=== PATIENT | male | born 1945 | race Caucasian/White ===

== ENCOUNTER 2018-07-11 15:03 | Inpatient (IN) | payer MEDICARE ==
[~2018-07-11] VITALS: Ht 170.2 cm; Wt 102.5 kg
[2018-07-11] MEDS ORDERED: ONDANSETRON PF 4 MG/2 ML VIAL. ONE (15:18)
[2018-07-11] MEDS ORDERED: IV NORMAL SALINE 1,000ML 1,000 ML IV ONE (15:30)
[2018-07-11] MEDS ORDERED: ONDANSETRON PF 4 MG/2 ML VIAL. IV ONE (15:30)
--- NOTE | 2018-07-11 15:41 | PHYS DOC ---
Adult General Chief Complaint Chief Complaint: FEVER HPI HPI 72-year-old male [facility] with [facility], cough, nausea , vomiting. Patient has had the symptoms for a couple of days. He had a fever of 102 today. They gave him Tylenol and this improved his fever. They're concerned the patient has a infection was in the ED. Patient tells me he is also had some chest pressure today and that was concerning to him. He does not report diaphoresis or shortness of breath, but the patient is on oxygen all the time. Review of Systems Review of Systems Constitutional: Fever[] Eyes: Denies change in visual acuity, redness, or eye pain [] HENT: nasal congestion with sore throat [] Respiratory: Cough without shortness of breath[] Cardiovascular: No additional information not addressed in HPI [] GI: Nausea, vomiting. Denies abdominal pain bloody stools or diarrhea [] : Denies dysuria or hematuria [] Musculoskeletal: Denies back pain or joint pain [] Integument: Denies rash or skin lesions [] Neurologic: Denies headache, focal weakness or sensory changes [] Endocrine: Denies polyuria or polydipsia [] All other systems were reviewed and found to be within normal limits, except as documented in this note. Current Medications Current Medications Current Medications Medications (Trade) Dose Ordered Sig/Akila Start Time Stop Time Status Last Admin Dose Admin Ondansetron HCl (Zofran) 4 mg STK-MED ONCE 07/11/18 15:18 07/11/18 15:19 DC Sodium Chloride 1,000 ml @ 1,000 mls/hr 1X ONCE 07/11/18 15:30 07/11/18 16:29 UNV Physical Exam Physical Exam Constitutional: Well developed, well nourished, no acute distress, non-toxic appearance. [] HENT: Normocephalic, atraumatic, bilateral external ears normal, oropharynx moist, no oral exudates, nose normal. [] Eyes: PERRLA, EOMI, conjunctiva normal, no discharge. [] Neck: Normal range of motion, no tenderness, supple, no stridor. [] Cardiovascular:Heart rate regular rhythm, no murmur [] Lungs & Thorax: Bilateral breath sounds clear to auscultation [] Abdomen: Bowel sounds normal, soft, no tenderness, no masses, no pulsatile masses. [] Skin: Warm, dry, no erythema, no rash. [] Back: No tenderness, no CVA tenderness. [] Extremities: No tenderness, no cyanosis, no clubbing, ROM intact, no edema. [] Neurologic: Alert and oriented X 3, normal motor function, normal sensory function, no focal deficits noted. [] Psychologic: Affect normal, judgement normal, mood normal. [] EKG EKG Sinus rhythm, rate 94, normal axis, no ST elevations or depressions.[] Radiology/Procedures Radiology/Procedures [] Impressions: Single view of the chest. 07/11/2018 2:48 PM Indication: cough, shortness of breath Comparison: Chest radiograph November 14, 2007 Findings: There is no focal consolidation. There is no pleural effusion or pneumothorax. The cardiomediastinal silhouette and pulmonary vasculature are within normal limits. No acute osseous abnormalities are seen. Impression: No evidence of acute cardiopulmonary process. Electronically signed by: Theo Suárez MD (07/11/2018 4:06 PM) [facility] DICTATED AND SIGNED BY: THEO SUÁREZ MD DATE: 07/11/18 1604 CC: AURA BARBOZA DO; NILAY GEE MD Course & Med Decision Making Course & Med Decision Making Pertinent Labs and Imaging studies reviewed. (See chart for details) The patient's labs are unremarkable. His chest x-ray is unremarkable for an elevated creatinine. Review of his chart shows he has had similarly elevated creatinines in the past. His influenza is negative. Strep is negative. The patient just has a viral URI with cough. He is maintaining his oxygen at his baseline O2 level. She continues to have some chest discomfort. His initial troponin is negative. I believe it would be most prudent to admit the patient for trending of his troponins. The patient is in agreement with this plan. Discussed the case with Dr. Chatman and he has agreed to admit the patient. I cannot order a CTA of the chest due to the patient's creatinine. I will let Dr. Chatman determine if the VQ scan is appropriate in the morning. [] Dragon Disclaimer Dragon Disclaimer This electronic medical record was generated, in whole or in part, using a voice recognition dictation system. Departure Departure: Impression: Primary Impression: Viral syndrome Additional Impression: Chest pain Disposition: 09 ADMITTED INPATIENT Condition: STABLE Referrals: NILAY GEE MD (PCP) Problem Qualifiers Additional Impression: Chest pain Chest pain type: chest pain on breathing Qualified Codes: R07.1 - Chest pain on breathing AURA BARBOZA DO Jul 11, 2018 15:41
[2018-07-11 15:45] LABS: BASO # 0.1 x10^3/uL (0.0-0.2); BASO % 1 % (0-3); EOS % 0 % (0-3); HEMOGLOBIN 11.9 g/dL (13.0-17.5); LYMPH # 0.7 x10^3/uL (1.0-4.8); LYMPH % 7 % (24-48); MEAN CORPUSCULAR HEMOGLOBIN 32 pg (25-35); MEAN CORPUSCULAR HGB CONC 33 g/dL (31-37); MEAN CORPUSCULAR VOLUME 96 fL (79-100); MONO # 0.5 x10^3/uL (0.0-1.1); MONO % 5 % (0-9); NEUT # 8.2 x10^3uL (1.8-7.7); NEUT % 87 % (31-73); PLATELET COUNT 334 x10^3/uL (140-400); RED BLOOD COUNT 3.75 x10^6/uL (4.30-5.70); RED CELL DISTRIBUTION WIDTH 13.4 % (11.5-14.5); WHITE BLOOD COUNT 9.5 x10^3/uL (4.0-11.0)
[2018-07-11 15:58] LABS: ALBUMIN 2.9 g/dL (3.4-5.0); ALBUMIN/GLOBULIN RATIO 0.9 (1.0-1.7); CALCIUM 8.8 mg/dL (8.5-10.1); CREATININE 1.8 mg/dL (0.7-1.3); GFR 37.2; INFLUENZA A PATIENT NEGATIVE (NEGATIVE); INFLUENZA B PATIENT NEGATIVE (NEGATIVE); POTASSIUM 4.3 mmol/L (3.5-5.1); TOTAL BILIRUBIN 0.3 mg/dL (0.2-1.0)
--- NOTE | 2018-07-11 16:09 | RAD ---
Single view of the chest. 07/11/2018 2:48 PM Indication: cough, shortness of breath Comparison: Chest radiograph November 14, 2007 Findings: There is no focal consolidation. There is no pleural effusion or pneumothorax. The cardiomediastinal silhouette and pulmonary vasculature are within normal limits. No acute osseous abnormalities are seen. Impression: No evidence of acute cardiopulmonary process. Electronically signed by: Theo Workman MD (07/11/2018 4:06 PM) [facility]
[2018-07-11] MEDS ORDERED: HYDROcodone/APAP 5/325MG 1 TAB TABLET PO ONE (16:45)
[2018-07-11] MEDS ORDERED: HYDROcodone/APAP 10/325 1 TAB TABLET PO ONE (17:00)
[2018-07-11] MEDS ORDERED: methylPREDNISolone SOD SUCC PF 125 MG/2 ML VIAL. IV ONE (17:30)
[2018-07-11 18:37] VITALS: BP 112/68
[2018-07-11] MEDS ORDERED: ASPI325T8 PO (21:55)
[2018-07-11] MEDS ORDERED: BUDE10.2 IH (21:55)
[2018-07-11] MEDS ORDERED: TRAM50TA PO (21:55)
[2018-07-11] MEDS ORDERED: FINA5TAB4 PO (21:55)
[2018-07-11] MEDS ORDERED: LISI10TA2 PO (21:55)
[2018-07-11] MEDS ORDERED: TAMS0.4C2 PO (21:55)
[2018-07-11 23:09] VITALS: BP 121/72
[2018-07-12] MEDS: traMADol 50 MG TABLET PO PRN ×2 (00:53→20:47)
[2018-07-12] MEDS ORDERED: IPRATRPIUM/ALBUTEROL 0.5/2.5MG 3 ML NEBU. ONE (05:06)
[2018-07-12 05:31] VITALS: BP 142/84
[2018-07-12] MEDS ORDERED: MORPHINE SULFATE 4 MG/ML DISP.SYRIN. IV ONE (07:00)
[2018-07-12] MEDS ORDERED: IV NORMAL SALINE 1,000ML 1,000 ML IV ONE (07:30)
[2018-07-12] MEDS ORDERED: IV NORMAL SALINE 500ML 500 ML IV ONE (07:45)
[2018-07-12 07:49] LABS: ALBUMIN 2.9 g/dL (3.4-5.0); ALBUMIN/GLOBULIN RATIO 0.9 (1.0-1.7); CREATININE 1.4 mg/dL (0.7-1.3); GFR 49.7; MAGNESIUM 1.7 mg/dL (1.8-2.4); POTASSIUM 4.4 mmol/L (3.5-5.1); TOTAL BILIRUBIN 0.4 mg/dL (0.2-1.0); TOTAL PROTEIN 6.3 g/dL (6.4-8.2)
[2018-07-12] MEDS: ALBUTEROL SULFATE 2.5 MG/3 ML NEBU. NEB SCH ×4 (08:00→20:00)
[2018-07-12] MEDS: BUDESONIDE 0.5 MG/2 ML NEBU NEB SCH ×2 (08:00→19:59)
[2018-07-12] MEDS ORDERED: NON FORMULARY ITEM (Budesonide/Formoterol Fumarate (Symbicort 160-4.5 Mcg Inhaler) 2 PUFF) IH SCH (09:00)
--- NOTE | 2018-07-12 09:25 | PDOC2 ---
MARGIE NOR[facility] 07/12/18 0925: CONSULT Date of Admission DATE: 07/12/18 TIME: 09:25 Reason for Consult: cp Problem List Problems Medical Problems: (1) Chest pain Status: Acute (2) Viral syndrome Status: Acute History of Present Illness Mr Sher is a 72 year old male who presents to the ED with complaints of shortness of breath, cough, fever and chills for a few days. Yesterday prior to arrival his temp was reportedly 102 degrees. He complains of chest pain that occurs with cough. He denies any prior history of chest pain, dyspnea. He denies congestive symptoms or palpitations, lightheadedness or syncope. He is post op a recent shoulder surgery completed at [facility] and remains in immobilizer currently. He has been residing at [facility] since discharge on 06/29/18, after surgery on 06/26/18. he denies functional status limitations other than those due to his surgery. Cardiovascular: HTN Pulmonary: COPD (has oxygen for as needed use at home) CENTRAL NERVOUS SYSTEM: Migraine, Periperal neuropathy (numbness right thumb and 1st 2 fingers) GI: GERD Musculoskeletal: Osteoarthritis, Other (degenerative joint disease) ENT: Other (hearing loss, cataracts) Renal/: Benign prostatic enlarg., Other (elevated PSA) Past Surgical History: Hernia Repair (umbilical and ventral hernia), Total knee replacement (right knee with 2 preceeding surgeries), Other (TURP and cystoscopy, and excision of cyst on neck) Family History hypertension and COPD, no significant coronary disease Social History Prior smoker, quit in the , occasional ETOH, denies illicit drugs Current Medications Current Medications Sodium Chloride 1,000 ml @ 1,000 mls/hr 1X ONCE IV Last administered on at 15:25; Start 07/11/18 at 15:30; Stop 07/11/18 at 16:29; Status DC Ondansetron HCl (Zofran) 4 mg 1X ONCE IV Last administered on 07/11/18at 16:24; Start 07/11/18 at 15:30; Stop 07/11/18 at 15:51; Status DC Ondansetron HCl (Zofran) 4 mg STK-MED ONCE .ROUTE ; Start 07/11/18 at 15:18; Stop 07/11/18 at 15:19; Status DC Acetaminophen/ Hydrocodone Bitart (Lortab 5/325) 1 tab 1X ONCE PO ; Start at 16:45; Stop 07/11/18 at 16:45; Status DC Acetaminophen/ Hydrocodone Bitart (Lortab 10/325) 1 tab 1X ONCE PO Last administered on 07/11/18at 16:39; Start 07/11/18 at 17:00; Stop 07/11/18 at 17:01; Status DC Methylprednisolone Sodium Succinate (SOLU-Medrol 125MG VIAL) 125 mg 1X ONCE IV Last administered on 07/11/18at 17:22; Start 07/11/18 at 17:30; Stop 07/11/18 at 17:31; Status DC Aspirin (Jaelyn Aspirin) 325 mg DAILY PO ; Start 07/12/18 at 09:00 Lisinopril (Prinivil) 10 mg DAILY PO ; Start 07/12/18 at 09:00 Tamsulosin HCl (Flomax) 0.4 mg QHS PO ; Start 07/12/18 at 21:00 Tramadol HCl (Ultram) 50 mg PRN Q6HRS PRN PO PAIN Last administered on at 00:53; Start 07/12/18 at 00:15 Non-Formulary Medication (Budesonide/ Formoterol Fumarate (Symbicort 160-4.5 Mcg Inhaler)) 2 puff BID IH ; Start 07/12/18 at 09:00; Status UNV Finasteride (Proscar) 5 mg QHS PO ; Start 07/12/18 at 21:00 Budesonide (Pulmicort) 0.5 mg RTBID NEB ; Start 07/12/18 at 08:00 Albuterol Sulfate (Ventolin) 2.5 mg RTQID NEB ; Start 07/12/18 at 08:00 Albuterol/ Ipratropium (Duoneb) 3 ml STK-MED ONCE .ROUTE Last administered on at 05:37; Start 07/12/18 at 05:06; Stop 07/12/18 at 05:07; Status DC Morphine Sulfate (Morphine 4mg Syringe) 4 mg 1X ONCE IV Last administered on at 06:34; Start 07/12/18 at 07:00; Stop 3/6/19 at 07:01; Status DC Sodium Chloride 1,000 ml @ 1,000 mls/hr 1X ONCE IV ; Start 07/12/18 at 07:30; Stop 07/12/18 at 08:29; Status DC Sodium Chloride 500 ml @ 0 mls/hr 1X ONCE IV ; Start 07/12/18 at 07:45; Stop 07/12/18 at 07:47; Status DC Sodium Chloride 1,000 ml @ 100 mls/hr Q10H IV ; Start 07/12/18 at 07:45 Active Scripts Active Reported Symbicort 160-4.5 Mcg Inhaler (Budesonide/Formoterol Fumarate) 10.2 Gm Hfa.aer.ad 2 Puff IH BID Tramadol Hcl (Tramadol HCl) 50 Mg Tablet 50 Mg PO PRN Q6HRS PRN Finasteride 5 Mg Tablet 5 Mg PO QHS Tamsulosin Hcl 0.4 Mg Cap.er.24h 0.4 Mg PO QHS Lisinopril 10 Mg Tablet 10 Mg PO DAILY Aspirin 325 Mg Tablet 325 Mg PO DAILY Allergies: Coded Allergies: No Known Drug Allergies (Unverified , 07/11/18) Review of System as per HPI or negative General: Alert, Oriented X3, Cooperative, No acute distress, Other (hard of hearing) HEENT: Atraumatic, EOMI, Mucous membr. moist/pink Lungs: Clear to auscultation, Normal air movement Heart: Normal S1, Normal S2, Other (no gallops, clicks or rubs) Abdomen: Normal bowel sounds, Soft, No tenderness Extremities: No cyanosis, Normal pulses, Other (no significant edema, right upper extremity in immobalizer, surgical dressing intact) Neuro: Normal speech, Strength at 5/5 X4 ext Psych/Mental Status: Mental status NL, Mood NL VITALS Vital Signs Date Time Temp Pulse Resp B/P (MAP) Pulse Ox O2 Delivery O2 Flow Rate FiO2 07/12/18 06:34 22 Nasal Cannula 1.5 07/12/18 05:39 95 07/12/18 05:31 98.3 95 142/84 (103) Labs Laboratory Tests Test 07/11/18 15:29 07/11/18 16:00 07/12/18 06:20 White Blood Count 9.5 x10^3/uL (4.0-11.0) Red Blood Count 3.75 x10^6/uL (4.30-5.70) Hemoglobin 11.9 g/dL (13.0-17.5) Hematocrit 36.0 % (39.0-53.0) Mean Corpuscular Volume 96 fL (79-100) Mean Corpuscular Hemoglobin 32 pg (25-35) Mean Corpuscular Hemoglobin Concent 33 g/dL (31-37) Red Cell Distribution Width 13.4 % (11.5-14.5) Platelet Count 334 x10^3/uL (140-400) Neutrophils (%) (Auto) 87 % (31-73) Lymphocytes (%) (Auto) 7 % (24-48) Monocytes (%) (Auto) 5 % (0-9) Eosinophils (%) (Auto) 0 % (0-3) Basophils (%) (Auto) 1 % (0-3) Neutrophils # (Auto) 8.2 x10^3uL (1.8-7.7) Lymphocytes # (Auto) 0.7 x10^3/uL (1.0-4.8) Monocytes # (Auto) 0.5 x10^3/uL (0.0-1.1) Eosinophils # (Auto) 0.0 x10^3/uL (0.0-0.7) Basophils # (Auto) 0.1 x10^3/uL (0.0-0.2) Sodium Level 136 mmol/L (136-145) 136 mmol/L (136-145) Potassium Level 4.3 mmol/L (3.5-5.1) 4.4 mmol/L (3.5-5.1) Chloride Level 101 mmol/L (98-107) 102 mmol/L (98-107) Carbon Dioxide Level 23 mmol/L (21-32) 21 mmol/L (21-32) Anion Gap 12 (6-14) 13 (6-14) Blood Urea Nitrogen 24 mg/dL (8-26) 20 mg/dL (8-26) Creatinine 1.8 mg/dL (0.7-1.3) 1.4 mg/dL (0.7-1.3) Estimated GFR (Cockcroft-Gault) 37.2 49.7 BUN/Creatinine Ratio 13 (6-20) 14 (6-20) Glucose Level 122 mg/dL (70-99) 179 mg/dL (70-99) Calcium Level 8.8 mg/dL (8.5-10.1) 9.0 mg/dL (8.5-10.1) Total Bilirubin 0.3 mg/dL (0.2-1.0) 0.4 mg/dL (0.2-1.0) Aspartate Amino Transf (AST/SGOT) 15 U/L (15-37) 16 U/L (15-37) Alanine Aminotransferase (ALT/SGPT) 15 U/L (16-63) 15 U/L (16-63) Alkaline Phosphatase 71 U/L (46-116) 76 U/L (46-116) Troponin I Quantitative < 0.017 ng/mL (0-0.055) < 0.017 ng/mL (0-0.055) RA-Nqt-H-Type Natriuretic Peptide 171 pg/mL (0-124) Total Protein 6.0 g/dL (6.4-8.2) 6.3 g/dL (6.4-8.2) Albumin 2.9 g/dL (3.4-5.0) 2.9 g/dL (3.4-5.0) Albumin/Globulin Ratio 0.9 (1.0-1.7) 0.9 (1.0-1.7) Influenza Type A (Rapid) Negative (NEGATIVE) Influenza Type B (Rapid) Negative (NEGATIVE) Group A Streptococcus Rapid Negative (NEGATIVE) Magnesium Level 1.7 mg/dL (1.8-2.4) Creatine Kinase 129 U/L (39-308) Images CXR - Impression: No evidence of acute cardiopulmonary process. Assessment/Plan 1. Chest pain, most consistent with musculoskeletal origin secondary to coughing with viral illness. No troponin elevation. No acute EKG changes. 2. Acute bronchitis - mgmt per PCP 3. Hypertension - adjust antihypertensives to bring pressure closer to goal. 4. tachycardia - episodes of PAT observed on tele. add beta liat. suggest outpatient monitoring. 5. s/p recent rotator cuff surgery - mgmt per PCP WALLY BASS MD 07/12/18 1641: CONSULT Assessment/Plan Pt. seen and examined. AGree with above RESIDUE FURNACE OPERATOR note. Non-cardiac chest pain EKG, enzymes wnl Echo wnl Exam unremarkable. Supportive care. Will f/u in the office for risk stratification Agree with outpt even monitor to rule out atrial arrhythmias. SVT likely paf/ flutter Thanks. Pls call with questions. MARGIE NORIEGA APRN Jul 12, 2018 09:25 WALLY BASS MD Jul 12, 2018 16:41
[2018-07-12] MEDS: LISINOPRIL 10 MG TABLET PO SCH (09:38)
[2018-07-12] MEDS: ASPIRIN 325 MG TABLET PO SCH (09:39)
[2018-07-12 11:28] VITALS: BP 119/70
[2018-07-12] MEDS ORDERED: MAGNESIUM OXIDE 400 MG TABLET PO SCH (12:00)
[2018-07-12] MEDS: METOPROLOL TART IMMED RELEASE 25 MG TABLET PO SCH ×2 (13:59→20:47)
[2018-07-12] MEDS: IV NORMAL SALINE 1,000ML 1,000 ML IV SCH ×2 (14:00→17:45)
--- NOTE | 2018-07-12 14:17 | EKG ---
[address] [address] Test Date: 2018-07-11 Test Time: 15:27:07 Pat Name: JAMES TONY Department: Room: 123 A Gender: M Male Model: SANDRINE : 1945 Requested By: AURA BARBOZA Order Number: [id number] Reading MD: Kimo López MD Measurements Intervals [place] Rate: 94 P: 26 MO: 138 QRS: 17 QRSD: 82 T: 36 QT: 320 QTc: 400 Interpretive Statements SINUS RHYTHM Electronically Signed On 07-13-2018 11:27:38 THERMO CEMENTING FOLDER OPERATOR by Kimo López MD
[2018-07-12 15:12] VITALS: BP 136/88
--- NOTE | 2018-07-12 15:15 | CARD ---
MR#: [id number] Date of Study: 07/12/2018 Ordering Physician: MARGIE NORIEGA, Referring Physician: KAREN MARQUEZ Tech: Jannie Lucero CHIDI APPROVED REPORT EXAM: Two-dimensional and M-mode echocardiogram with Doppler and color Doppler. Other Information Quality : Technically LimitedHR: 135bpm INDICATION Chest Pain 2D DIMENSIONS RVDd3.9 (2.9-3.5cm)Left Atrium(2D)3.6 (1.6-4.0cm) IVSd1.4 (0.7-1.1cm)Aortic Root(2D)3.8 (2.0-3.7cm) LVDd4.3 (3.9-5.9cm)LVOT Diameter2.2 (1.8-2.4cm) PWd1.3 (0.7-1.1cm)LVDs3.2 (2.5-4.0cm) FS (%) 25.2 %SV42.4 ml LVEF(%)55.5 (>50%) M-Mode DIMENSIONS Left Atrium(MM)4.87 (2.5-4.0cm)Aortic Root4.15 (2.2-3.7cm) Aortic Valve AoV Peak Yoel.155.5cm/sAoV VTI21.8cm AO Peak GR.9.7mmHgLVOT Peak Yoel.120.2cm/s LVOT VTI 22.80cmAO Mean GR.5mmHg ELLIOT (VMAX)2.08nv2XXH (VTI)3.00cm2 Mitral Valve MV E Dlnbspit242.9cm/sMV DECEL XHIF555wl MV A Botdyhjv45.5cm/sE/A Ratio1.5 MV A Zwjquvab70mn Pulmonary Valve PV Peak Keccmrae989.7cm/sPV Peak Grad.6mmHg Tricuspid Valve TR P. Vxvsblwm841yo/sRAP SCKIYYVY6qqBt TR Peak Gr.35xcCpDKFO79gcPy LEFT VENTRICLE The left ventricle is normal size. There is mild concentric left ventricular hypertrophy. The left ve ntricular systolic function is normal and the ejection fraction is within normal range. The Ejection Fraction is 60-65%. There is normal LV segmental wall motion. Transmitral Doppler flow pattern is abn ormal. RIGHT VENTRICLE The right ventricle is mildly dilated. There is normal right ventricular wall thickness. The right ve ntricular systolic function is normal. ATRIA The left atrium is borderline dilated. The right atrium is borderline dilated. The interatrial septum is intact with no evidence for an atrial septal defect or patent foramen ovale as noted on 2-D or Do ppler imaging. AORTIC VALVE The aortic valve is not well visualized. Doppler and Color Flow revealed no significant aortic regurg itation. There is no significant aortic valvular stenosis. MITRAL VALVE Mitral annular calcification is mild. There is no evidence of mitral valve prolapse. There is no mitr al valve stenosis. Doppler and Color-flow revealed trace mitral regurgitation. TRICUSPID VALVE The tricuspid valve is normal in structure and function. Doppler and Color Flow revealed trace to mil d tricuspid regurgitation. The PA pressure was estimated at 41 mmHg. There is no tricuspid valve prol apse or vegetation. There is no tricuspid valve stenosis. PULMONIC VALVE The pulmonic valve is not well visualized. GREAT VESSELS The aortic root is mildly enlarged. The IVC is dilated and collapses <50% with inspiration. PERICARDIAL EFFUSION There is no evidence of significant pericardial effusion. Critical Notification Critical Value: No <Conclusion> The left ventricle is normal size. The left ventricular systolic function is normal and the ejection fraction is within normal range. The Ejection Fraction is 60-65%. There is mild concentric left ventricular hypertrophy. There is no significant aortic valvular stenosis. Doppler and Color Flow revealed no significant aortic regurgitation. Doppler and Color-flow revealed trace mitral regurgitation. Doppler and Color Flow revealed trace to mild tricuspid regurgitation. The PA pressure was estimated at 41 mmHg. The aortic root is mildly enlarged. Signed by : Rich Franklin MD Electronically Approved : 07/12/2018 15:14:44
[2018-07-12] MEDS: ENOXAPARIN 40 MG/0.4 ML SYRINGE. SQ SCH (17:50)
--- NOTE | 2018-07-12 18:57 | HP ---
ADMIT DATE: 07/11/2018 HISTORY OF PRESENT ILLNESS: The patient is a 72-year-old male patient, who underwent right reverse total shoulder arthroplasty for advanced rotator cuff tear, arthropathy of the right shoulder, and was actually at [facility] for rehabilitation and who apparently was brought to the Emergency Room with a complaint of shortness of breath, cough, fever, chills for a few days. On arrival, his temperature was reportedly 102 degree. He complained of chest pain that occurs with cough. He denies any prior history of chest pain, dyspnea. Denies any congestive symptoms, palpitation, lightheadedness or syncope. He has had surgery recently at [facility] and remains in right shoulder immobilizer. He has been residing at [facility] since discharge on 06/29/2018. After his surgery on 06/26/2018, he denies any functional status limitation other than that was due to his surgery. PAST MEDICAL HISTORY: Significant for hypertension, hyperlipidemia, chronic obstructive pulmonary disease, sensorineural deafness, has bilateral cataract, migraine, peripheral neuropathy. He has also osteoarthritis and benign prostatic hypertrophy. PAST SURGICAL HISTORY: Significant for right total knee arthroplasty, reverse right shoulder replacement. He has also colonoscopy and transurethral resection of the prostate x 2. He has also excision of a cyst from his neck. FAMILY HISTORY: Significant for hypertension, COPD. SOCIAL HISTORY: He is , lives with his . He quit smoking in . He drinks alcohol occasionally. 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 ALLERGIES: He has no known drug allergies. MEDICATIONS: He is currently on following medications: He is on tamsulosin 0.4 mg at bedtime, lisinopril 10 mg once a day, aspirin 325 mg once a day, tramadol 50 mg daily. He is on budesonide-formoterol/Symbicort 160/4.5 two puffs twice a day and finasteride 5 mg at bedtime. REVIEW OF SYSTEMS: The patient denies any blurring of vision, cataract, glaucoma or macular degeneration. Denied any earache, tinnitus or sensorineural deafness. Denied any nosebleeds, stuffy nose or postnasal drip. Denied any sore throat, sore tongue, toothache, hoarseness of voice or difficulty swallowing. He denied any nausea, vomiting, diarrhea or constipation. Denied any hematemesis, melena or hematochezia. Denied any dysuria, frequency or hematuria. Denied any chest pain; did complain of shortness of breath, worse on coughing. He did have chills, rigors or fever. Denied any dizziness, lightheadedness, or vertigo. PHYSICAL EXAMINATION: GENERAL: On arrival to the Emergency Room, he looked well and was clearly in no apparent respiratory distress. No pallor, jaundice, cyanosis or thyromegaly. No jugular venous distension. No limb edema. VITAL SIGNS: His heart rate was 95, blood pressure was 101/58, temperature was 98.3, respiratory rate was 22 and oxygen saturation was 92% on room air. HEAD, EYES, EARS, NOSE, AND THROAT: Showed normocephalic, atraumatic. NECK: Supple. HEART: Showed normal first and second heart sounds with no gallop, rub or murmur. CHEST: Clear to auscultation. No crepitation or rhonchi. ABDOMEN: Distended, soft, nontender. No guarding or rigidity. No organomegaly. All hernial orifices intact. Bowel sounds normal. NEUROLOGIC: He was awake, alert, responding appropriately. All cranial nerves intact. EXTREMITIES: He moves extremities without difficulty. He ambulates without assistance or assistive devices. He has right shoulder immobilizer after recent right shoulder replacement. ASSESSMENT AND PLAN: The patient was admitted with viral syndrome and chest pain. The Cardiology team was consulted; however, given the fact that he has fever, yellowish sputum, he is known to have chronic obstructive pulmonary disease; unfortunately, I saw him late in the day, but I will start him on Levaquin, Solu-Medrol, and nebulized treatment. He has episodes of atrial tachycardia for which he received IV fluid and his heart rate dropped down. In fact when I saw him this afternoon, his heart rate was down to 95 and 85 beats per minute. So my personal diagnosis is acute bronchitis, chronic obstructive pulmonary disease exacerbation. Given that he came from [facility], I will start him on Levaquin. Continue with DuoNeb and Solu-Medrol, and decide on further management accordingly. KAREN MARQUEZ MD DR: KIERAN/teresa JOB#: [id number] / [id number]
[2018-07-12 19:22] VITALS: BP 133/81
[2018-07-12] MEDS: IPRATRPIUM/ALBUTEROL 0.5/2.5MG 3 ML NEBU. NEB SCH (19:58)
[2018-07-12] MEDS: TAMSULOSIN 0.4 MG CAP.ER.24H. PO SCH (20:46)
[2018-07-12] MEDS: LACTOBACILLUS RHAMNOSUS GG 1 CAPSULE. PO SCH (20:47)
[2018-07-12] MEDS: FINASTERIDE 5 MG TABLET PO SCH (20:47)
[2018-07-12] MEDS: methylPREDNISolone SOD SUCC PF 40 MG/ML VIAL. IV SCH (22:00)
[2018-07-12 22:09] VITALS: BP 111/62
[2018-07-13] VITALS (10 sets, daily range): BP systolic 98–130; BP diastolic 55–80
[2018-07-13] MEDS: IV NORMAL SALINE 1,000ML 1,000 ML IV SCH ×3 (00:49→22:41)
--- NOTE | 2018-07-13 00:57 | PN ---
DATE: 07/12/2018 SUBJECTIVE: The patient is resting, slightly propped up in bed, in no apparent distress. He continued to have cough with chest pain as well as shortness of breath. Has also had fever, temperature was according to him up to 102 on arrival. He denied any orthopnea or paroxysmal nocturnal dyspnea. He denied any hemoptysis. OBJECTIVE: GENERAL: When I examined him this afternoon, he was resting slightly propped up in bed, in no apparent distress, slightly pale. No jaundice, cyanosis, or thyromegaly. No jugular venous distension. No limb edema. VITAL SIGNS: His heart rate was 117, blood pressure was 136/88, temperature was 98.5, respiratory rate 20, and oxygen saturation was 96% on 2 liters of oxygen. HEAD, EYES, EARS, NOSE, AND THROAT: Showed normocephalic, atraumatic. NECK: Supple. HEART: Showed normal first and second sounds. No gallop, rub, or murmur. CHEST: Clear to auscultation. No crepitation or rhonchi. ABDOMEN: Distended, soft, nontender. NEUROLOGIC: He was awake, alert, responding appropriately. All cranial nerves intact. His right shoulder was in a shoulder immobilizer after recent reverse shoulder replacement. His intake was 1000, no output was recorded. LABORATORY DATA: His lab work this morning showed that his serum sodium was 136, potassium 4.4, chloride 102, bicarbonate 21, anion gap of 13, BUN 20, creatinine 1.4, estimated GFR was 50 mL per minute. His glucose 179, calcium was 9, magnesium was 1.7. Total bilirubin, AST, ALT, alkaline phosphatase were normal. Total protein was 6.3, albumin was 2.9. He had 2 sets of cardiac enzymes that ruled out myocardial infarction. ASSESSMENT: 1. The patient was seen by the gem setter and basically, the patient's cardiac enzymes and EKG were not consistent with myocardial infarction, but rather with musculoskeletal origin. Has acute bronchitis. 2. Chronic obstructive pulmonary disease exacerbation. 3. Hypertension. 4. Paroxysmal atrial tachycardia, for which he was started on beta liat and has received recent rotator cuff tear surgery. PLAN: My plan is to start him on Levaquin, Solu-Medrol, DuoNeb, and follow him closely. I will repeat his labs tomorrow. We need to start him on DVT prophylaxis in the form of Lovenox. We will continue all his other medications. KAREN MARQUEZ MD DR: KIERAN/teresa JOB#: [id number] / [id number]
[2018-07-13] MEDS: traMADol 50 MG TABLET PO PRN ×2 (03:18→15:52)
[2018-07-13] MEDS: IPRATRPIUM/ALBUTEROL 0.5/2.5MG 3 ML NEBU. NEB SCH (05:31)
[2018-07-13] MEDS: methylPREDNISolone SOD SUCC PF 40 MG/ML VIAL. IV SCH ×3 (05:53→21:12)
[2018-07-13 06:33] LABS: HEMATOCRIT 34.3 % (39.0-53.0); HEMOGLOBIN 11.4 g/dL (13.0-17.5); RED BLOOD COUNT 3.57 x10^6/uL (4.30-5.70); RED CELL DISTRIBUTION WIDTH 13.4 % (11.5-14.5); WHITE BLOOD COUNT 10.6 x10^3/uL (4.0-11.0)
[2018-07-13 06:38] LABS: ALBUMIN 2.5 g/dL (3.4-5.0); ALBUMIN/GLOBULIN RATIO 0.7 (1.0-1.7); CALCIUM 8.7 mg/dL (8.5-10.1); CREATININE 1.2 mg/dL (0.7-1.3); GFR 59.3; POTASSIUM 4.1 mmol/L (3.5-5.1); TOTAL BILIRUBIN 0.4 mg/dL (0.2-1.0); TOTAL PROTEIN 5.9 g/dL (6.4-8.2)
[2018-07-13] MEDS: ASPIRIN 325 MG TABLET PO SCH (07:24)
[2018-07-13] MEDS: LACTOBACILLUS RHAMNOSUS GG 1 CAPSULE. PO SCH ×2 (07:25→21:12)
[2018-07-13] MEDS: METOPROLOL TART IMMED RELEASE 25 MG TABLET PO SCH (07:25)
[2018-07-13] MEDS: LISINOPRIL 10 MG TABLET PO SCH (07:25)
[2018-07-13] MEDS: ACETAMINOPHEN 325 MG TABLET PO PRN (07:30)
[2018-07-13] MEDS ORDERED: ALBUTEROL SULFATE 2.5 MG/3 ML NEBU. NEB PRN (08:00)
[2018-07-13] MEDS: IPRATRPIUM/ALBUTEROL 0.5/2.5MG 3 ML NEBU. NEB PRN ×2 (09:14→15:19)
[2018-07-13] MEDS: BUDESONIDE 0.5 MG/2 ML NEBU NEB PRN ×2 (09:15→20:31)
--- NOTE | 2018-07-13 12:45 | PDOC ---
PROGRESS NOTES Diagnosis Problem Problems Medical Problems: (1) Chest pain Status: Acute (2) Viral syndrome Status: Acute Assessment Problems Medical Problems: (1) Chest pain Status: Acute (2) Viral syndrome Status: Acute 1. Chest pain - non cardiac chest pain. Normal LVEF and wall motion by echo. Luís neg.lipids pending. 2. atrial tachycardia - poss atrial flutter with 2:1 conduction. increase metoprolol. outpatient mct for burden. [id number] score = 2. aspirin for now. Eval for possible eliquis when ok with Sx if AF/Flutter burden elevated. 3. Acute bronchitis - mgmt per PCP 4. Hypertension - controlled. decrease ACEI to allow for increased beta liat 5. s/p recent rotator cuff surgery - mgmt per PCP Subjective no new complaints Objective Vital Signs Date Time Temp Pulse Resp B/P (MAP) Pulse Ox O2 Delivery O2 Flow Rate FiO2 07/13/18 10:45 97.6 77 20 114/73 (87) 95 Nasal Cannula 2.0 Intake and Output 07/13/18 06:59 Intake Total 2398.6 ml Balance 2398.6 ml Intake Oral 1020 ml IV Total 1378.6 ml # Voids 3 Physical Exam General: Alert, Oriented X3, No acute distress Lungs: Clear to auscultation, Normal air movement Heart: Normal S1, Normal S2, Other (no gallops, clicks or rubs) Abdomen: Normal bowel sounds, Soft, No tenderness Extremities: No cyanosis, Normal pulses, Other (no significant edema, right upper extremity in immobilizer, surgical dressing intact) Review of Relevant I have reviewed the following items garrick (where applicable) has been applied. Labs Laboratory Tests Test 07/11/18 15:29 07/11/18 16:00 07/11/18 20:11 07/12/18 06:20 White Blood Count 9.5 x10^3/uL (4.0-11.0) Red Blood Count 3.75 x10^6/uL (4.30-5.70) Hemoglobin 11.9 g/dL (13.0-17.5) Hematocrit 36.0 % (39.0-53.0) Mean Corpuscular Volume 96 fL (79-100) Mean Corpuscular Hemoglobin 32 pg (25-35) Mean Corpuscular Hemoglobin Concent 33 g/dL (31-37) Red Cell Distribution Width 13.4 % (11.5-14.5) Platelet Count 334 x10^3/uL (140-400) Neutrophils (%) (Auto) 87 % (31-73) Lymphocytes (%) (Auto) 7 % (24-48) Monocytes (%) (Auto) 5 % (0-9) Eosinophils (%) (Auto) 0 % (0-3) Basophils (%) (Auto) 1 % (0-3) Neutrophils # (Auto) 8.2 x10^3uL (1.8-7.7) Lymphocytes # (Auto) 0.7 x10^3/uL (1.0-4.8) Monocytes # (Auto) 0.5 x10^3/uL (0.0-1.1) Eosinophils # (Auto) 0.0 x10^3/uL (0.0-0.7) Basophils # (Auto) 0.1 x10^3/uL (0.0-0.2) Sodium Level 136 mmol/L (136-145) 136 mmol/L (136-145) Potassium Level 4.3 mmol/L (3.5-5.1) 4.4 mmol/L (3.5-5.1) Chloride Level 101 mmol/L (98-107) 102 mmol/L (98-107) Carbon Dioxide Level 23 mmol/L (21-32) 21 mmol/L (21-32) Anion Gap 12 (6-14) 13 (6-14) Blood Urea Nitrogen 24 mg/dL (8-26) 20 mg/dL (8-26) Creatinine 1.8 mg/dL (0.7-1.3) 1.4 mg/dL (0.7-1.3) Estimated GFR (Cockcroft-Gault) 37.2 49.7 BUN/Creatinine Ratio 13 (6-20) 14 (6-20) Glucose Level 122 mg/dL (70-99) 179 mg/dL (70-99) Calcium Level 8.8 mg/dL (8.5-10.1) 9.0 mg/dL (8.5-10.1) Total Bilirubin 0.3 mg/dL (0.2-1.0) 0.4 mg/dL (0.2-1.0) Aspartate Amino Transf (AST/SGOT) 15 U/L (15-37) 16 U/L (15-37) Alanine Aminotransferase (ALT/SGPT) 15 U/L (16-63) 15 U/L (16-63) Alkaline Phosphatase 71 U/L (46-116) 76 U/L (46-116) Troponin I Quantitative < 0.017 ng/mL (0-0.055) < 0.017 ng/mL (0-0.055) DA-Dyp-C-Type Natriuretic Peptide 171 pg/mL (0-124) Total Protein 6.0 g/dL (6.4-8.2) 6.3 g/dL (6.4-8.2) Albumin 2.9 g/dL (3.4-5.0) 2.9 g/dL (3.4-5.0) Albumin/Globulin Ratio 0.9 (1.0-1.7) 0.9 (1.0-1.7) Influenza Type A (Rapid) Negative (NEGATIVE) Influenza Type B (Rapid) Negative (NEGATIVE) Group A Streptococcus Rapid Negative (NEGATIVE) Nasal Screen MRSA (PCR) Negative (Negative) Magnesium Level 1.7 mg/dL (1.8-2.4) Creatine Kinase 129 U/L (39-308) Triglycerides Level 40 mg/dL (0-150) Cholesterol Level 124 mg/dL (0-200) LDL Cholesterol, Calculated 55 mg/dL (0-100) VLDL Cholesterol, Calculated 8 mg/dL (0-40) Non-HDL Cholesterol Calculated 63 mg/dL (0-129) HDL Cholesterol 61 mg/dL (40-60) Cholesterol/HDL Ratio 2.0 Test 07/13/18 06:05 White Blood Count 10.6 x10^3/uL (4.0-11.0) Red Blood Count 3.57 x10^6/uL (4.30-5.70) Hemoglobin 11.4 g/dL (13.0-17.5) Hematocrit 34.3 % (39.0-53.0) Mean Corpuscular Volume 96 fL (79-100) Mean Corpuscular Hemoglobin 32 pg (25-35) Mean Corpuscular Hemoglobin Concent 33 g/dL (31-37) Red Cell Distribution Width 13.4 % (11.5-14.5) Platelet Count 315 x10^3/uL (140-400) Sodium Level 134 mmol/L (136-145) Potassium Level 4.1 mmol/L (3.5-5.1) Chloride Level 100 mmol/L (98-107) Carbon Dioxide Level 24 mmol/L (21-32) Anion Gap 10 (6-14) Blood Urea Nitrogen 18 mg/dL (8-26) Creatinine 1.2 mg/dL (0.7-1.3) Estimated GFR (Cockcroft-Gault) 59.3 BUN/Creatinine Ratio 15 (6-20) Glucose Level 101 mg/dL (70-99) Calcium Level 8.7 mg/dL (8.5-10.1) Total Bilirubin 0.4 mg/dL (0.2-1.0) Aspartate Amino Transf (AST/SGOT) 14 U/L (15-37) Alanine Aminotransferase (ALT/SGPT) 12 U/L (16-63) Alkaline Phosphatase 65 U/L (46-116) Total Protein 5.9 g/dL (6.4-8.2) Albumin 2.5 g/dL (3.4-5.0) Albumin/Globulin Ratio 0.7 (1.0-1.7) Microbiology 07/11/18 Blood Culture - Preliminary, Resulted NO GROWTH AFTER 1 DAY... 07/11/18 Throat Screen - Final, Complete 07/11/18 Throat Culture - Final, Complete Medications Current Medications Sodium Chloride 1,000 ml @ 1,000 mls/hr 1X ONCE IV Last administered on at 15:25; Start 07/11/18 at 15:30; Stop 07/11/18 at 16:29; Status DC Ondansetron HCl (Zofran) 4 mg 1X ONCE IV Last administered on 07/11/18at 16:24; Start 07/11/18 at 15:30; Stop 07/11/18 at 15:51; Status DC Ondansetron HCl (Zofran) 4 mg STK-MED ONCE .ROUTE ; Start 07/11/18 at 15:18; Stop 07/11/18 at 15:19; Status DC Acetaminophen/ Hydrocodone Bitart (Lortab 5/325) 1 tab 1X ONCE PO ; Start at 16:45; Stop 07/11/18 at 16:45; Status DC Acetaminophen/ Hydrocodone Bitart (Lortab 10/325) 1 tab 1X ONCE PO Last administered on 07/11/18 16:39; Start 07/11/18 at 17:00; Stop 07/11/18 at 17:01; Status DC Methylprednisolone Sodium Succinate (SOLU-Medrol 125MG VIAL) 125 mg 1X ONCE IV Last administered on 07/11/18 17:22; Start 07/11/18 at 17:30; Stop 07/11/18 at 17:31; Status DC Aspirin (Jaelny Aspirin) 325 mg DAILY PO Last administered on 07/13/18 07:24; Start 07/12/18 at 09:00 Lisinopril (Prinivil) 10 mg DAILY PO Last administered on 07/13/18 07:25; Start 07/12/18 at 09:00 Tamsulosin HCl (Flomax) 0.4 mg QHS PO Last administered on 07/12/18 20:46; Start 07/12/18 at 21:00 Tramadol HCl (Ultram) 50 mg PRN Q6HRS PRN PO PAIN Last administered on 03:18; Start 07/12/18 at 00:15 Non-Formulary Medication (Budesonide/ Formoterol Fumarate (Symbicort 160-4.5 Mcg Inhaler)) 2 puff BID IH ; Start 07/12/18 at 09:00; Status UNV Finasteride (Proscar) 5 mg QHS PO Last administered on 07/12/18 20:47; Start at 21:00 Budesonide (Pulmicort) 0.5 mg RTBID NEB Last administered on 07/12/18 19:59; Start 07/12/18 at 08:00; Stop 07/13/18 at 06:58; Status DC Albuterol Sulfate (Ventolin) 2.5 mg RTQID NEB Last administered on 07/12/18 15: 26; Start 07/12/18 at 08:00; Stop 07/12/18 at 22:13; Status DC Albuterol/ Ipratropium (Duoneb) 3 ml STK-MED ONCE .ROUTE Last administered on 05:37; Start 07/12/18 at 05:06; Stop 07/12/18 at 05:07; Status DC Morphine Sulfate (Morphine 4mg Syringe) 4 mg 1X ONCE IV Last administered on at 06:34; Start 07/12/18 at 07:00; Stop 07/12/18 at 07:01; Status DC Sodium Chloride 1,000 ml @ 1,000 mls/hr 1X ONCE IV Last administered on at 09:36; Start 07/12/18 at 07:30; Stop 07/12/18 at 08:29; Status DC Sodium Chloride 500 ml @ 0 mls/hr 1X ONCE IV ; Start 07/12/18 at 07:45; Stop 07/12/18 at 07:47; Status DC Sodium Chloride 1,000 ml @ 100 mls/hr Q10H IV Last administered on 07/13/18at 11 :13; Start 07/12/18 at 07:45 Magnesium Oxide (Magnesium Oxide) 400 mg BID PO Last administered on 07/12/18at 13:58; Start 07/12/18 at 12:00; Stop 07/12/18 at 12:01; Status DC Metoprolol Tartrate (Lopressor) 25 mg BID PO Last administered on 07/13/18at 07: 25; Start 07/12/18 at 12:00 Levofloxacin/ Dextrose 100 ml @ 100 mls/hr 1X ONCE IV Last administered on 07/12/18at 17:51; Start 07/12/18 at 18:00; Stop 07/12/18 at 18:59; Status DC Levofloxacin/ Dextrose 50 ml @ 50 mls/hr Q24H IV ; Start 07/13/18 at 18:00 Methylprednisolone Sodium Succinate (SOLU-Medrol 40MG VIAL) 40 mg Q8HRS IV Last administered on 07/13/18at 05:53; Start 07/12/18 at 22:00 Albuterol/ Ipratropium (Duoneb) 3 ml RTQID NEB Last administered on 07/13/18at 05 :31; Start 07/12/18 at 20:00; Stop 07/13/18 at 06:58; Status DC Enoxaparin Sodium (Lovenox 40mg Syringe) 40 mg Q24H SQ Last administered on 07/12at 17:50; Start 07/12/18 at 17:30 Lactobacillus Rhamnosus (Culturelle) 1 cap BID PO Last administered on 07:25; Start 07/12/18 at 21:00 Albuterol Sulfate (Ventolin) 2.5 mg PRN QID PRN NEB SHORTNESS OF BREATH; Start 07/13/18 at 08:00 Acetaminophen (Tylenol) 650 mg PRN Q6HRS PRN PO PAIN / TEMP Last administered on 07/13/18 07:30; Start 07/13/18 at 06:00 Budesonide (Pulmicort) 0.5 mg PRN BID PRN NEB SHORTNESS OF BREATH Last administered on 07/13/18at 09:15; Start 07/13/18 at 07:00 Albuterol/ Ipratropium (Duoneb) 3 ml PRN QID PRN NEB SHORTNESS OF BREATH Last administered on 07/13/18at 09:14; Start 07/13/18 at 07:00 Active Scripts Active Reported Symbicort 160-4.5 Mcg Inhaler (Budesonide/Formoterol Fumarate) 10.2 Gm Hfa.aer.ad 2 Puff IH BID Tramadol Hcl (Tramadol HCl) 50 Mg Tablet 50 Mg PO PRN Q6HRS PRN Finasteride 5 Mg Tablet 5 Mg PO QHS Tamsulosin Hcl 0.4 Mg Cap.er.24h 0.4 Mg PO QHS Lisinopril 10 Mg Tablet 10 Mg PO DAILY Aspirin 325 Mg Tablet 325 Mg PO DAILY Vitals/I & O Vital Sign - Last 24 Hours 07/12/18 07/12/18 07/12/18 07/12/18 13:59 15:12 15:26 19:22 Temp 98.5 99.2 Pulse 85 117 89 Resp 20 22 B/P (MAP) 119/70 136/88 (104) 133/81 (98) Pulse Ox 96 95 93 O2 Delivery Nasal Cannula Nasal Cannula Nasal Cannula O2 Flow Rate 2.0 2.0 2.0 07/12/18 07/12/18 07/12/18 07/12/18 20:00 20:40 20:47 20:47 Pulse 89 Resp 20 B/P (MAP) 133/81 Pulse Ox 100 O2 Delivery Nasal Cannula Nasal Cannula Room Air O2 Flow Rate 2.0 1.5 07/12/18 07/13/18 07/13/18 07/13/18 22:09 03:18 04:18 05:21 Temp 98.8 97.9 Pulse 149 87 Resp 24 18 20 22 B/P (MAP) 111/62 (78) 130/80 (97) Pulse Ox 92 92 O2 Delivery Nasal Cannula Nasal Cannula Nasal Cannula Nasal Cannula O2 Flow Rate 2.0 1.5 1.5 2.0 07/13/18 07/13/18 07/13/18 07/13/18 05:34 07:25 07:25 07:53 Pulse 180 180 B/P (MAP) 130/80 130/80 Pulse Ox 96 O2 Delivery Nasal Cannula Nasal Cannula O2 Flow Rate 2.0 1.5 07/13/18 07/13/18 09:18 10:45 Temp 97.6 Pulse 77 Resp 20 B/P (MAP) 114/73 (87) Pulse Ox 97 95 O2 Delivery Nasal Cannula Nasal Cannula O2 Flow Rate 2.0 2.0 Intake and Output 07/12/18 07/12/18 07/13/18 14:59 22:59 06:59 Intake Total 480 ml 1618.6 ml 300 ml Balance 480 ml 1618.6 ml 300 ml MARGIE [employer]GA [employer] Jul 13, 2018 12:45
[2018-07-13] MEDS: VERAPAMIL 40 MG TABLET. PO SCH ×3 (13:42→22:45)
--- NOTE | 2018-07-13 15:10 | RAD ---
Chest, 2 views, 07/13/2018: HISTORY: Cough, shortness of breath Comparison is made to a study from 07/11/2018. The heart size is within normal limits. Minimal streaky atelectasis/infiltrate has developed in the left base. No definite right lung infiltrate is seen. There is no evidence of pleural fluid. Moderate scattered degenerative changes are present in the spine. A right shoulder prosthesis is in place. IMPRESSION: Minimal streaky left basilar atelectasis/infiltrate. Electronically signed by: Reed Elizalde MD (07/13/2018 3:07 PM) [facility], [place]
[2018-07-13] MEDS: ENOXAPARIN 40 MG/0.4 ML SYRINGE. SQ SCH (15:53)
[2018-07-13] MEDS ORDERED: METOPROLOL TART IMMED RELEASE 50 MG TABLET PO SCH (21:00)
--- NOTE | 2018-07-13 21:10 | PN ---
DATE: 07/13/2018 SUBJECTIVE: The patient is resting, almost flat in bed, in no apparent distress. He continued to have chest pain whenever he coughs and continued to have episodes of what seems to be atrial tachycardia, possible atrial flutter with 2:1 conduction. His metoprolol was increased; however, he continues to have this episode of tachycardia and he was switched to verapamil. PHYSICAL EXAMINATION: GENERAL: When I examined him this afternoon, he looked well and was clearly in no apparent respiratory distress, pale. No jaundice, cyanosis, or thyromegaly. No jugular venous distension. No lower limb edema. VITAL SIGNS: His heart rate was 86, blood pressure 121/72, temperature was 98.3, respiratory rate was 16 and oxygen saturation was 94% on 1 liter of oxygen. HEAD, EYES, EARS, NOSE, AND THROAT: Showed normocephalic, atraumatic. NECK: Supple. HEART: Showed normal first and second heart sounds with no gallop, rub or murmur. CHEST: Clear to auscultation. No crepitation or rhonchi. ABDOMEN: Distended, soft, nontender. No guarding or rigidity. No organomegaly. All hernial orifices intact. Bowel sounds normal. NEUROLOGIC: He was awake, alert, responding appropriately. All cranial nerves intact. He moves extremities without difficulty, ambulates without assistance or assistive device. His intake over the last 24 hours was 1000. No output was recorded. LABORATORY DATA: His lab work as of this morning showed a white cell count of 10,600, hemoglobin 11.4, hematocrit 34, MCV 96, and platelet count of 315,000. Serum sodium was 134, potassium 4.1, chloride 100, bicarbonate 24, anion gap of 10, BUN 18, creatinine 1.2, estimated GFR was 59 mL per minute. His glucose was 101, calcium was 8.7. Total bilirubin, AST, ALT, alkaline phosphatase were normal. Total protein 5.9, albumin 2.5. Serum triglycerides were 40. Total cholesterol 124, LDL was 55, VLDL was 8, HDL cholesterol was 61 and the ratio was 2. ASSESSMENT: 1. Chest pain, most likely musculoskeletal. So far, his cardiac enzymes and EKG have ruled out myocardial infarction. His EKG is consistent probably with atrial tachycardia versus atrial flutter with 2:1 conduction. 2. Chronic obstructive pulmonary disease exacerbation. 3. Hypertension. 4. Acute bronchitis. 5. Recent surgery for his rotator cuff tear. PLAN: To continue with IV Levaquin. Continue with Solu-Medrol. Continue with DVT prophylaxis. He was started on verapamil 40 mg 3 times a day. We will monitor his response over the next 24 hours to decide on further management or whether he needs to be on Cardizem drip. KAREN MARQUEZ MD DR: KIERAN/teresa JOB#: [id number] / [id number]
[2018-07-13] MEDS: TAMSULOSIN 0.4 MG CAP.ER.24H. PO SCH (21:12)
[2018-07-13] MEDS: FINASTERIDE 5 MG TABLET PO SCH (21:12)
[2018-07-14] VITALS (13 sets, daily range): BP systolic 84–132; BP diastolic 53–78
[2018-07-14] MEDS: IPRATRPIUM/ALBUTEROL 0.5/2.5MG 3 ML NEBU. NEB PRN (05:26)
[2018-07-14] MEDS: methylPREDNISolone SOD SUCC PF 40 MG/ML VIAL. IV SCH ×3 (05:37→21:13)
[2018-07-14 06:24] LABS: HEMATOCRIT 36.2 % (39.0-53.0); HEMOGLOBIN 11.8 g/dL (13.0-17.5); RED BLOOD COUNT 3.75 x10^6/uL (4.30-5.70); RED CELL DISTRIBUTION WIDTH 13.7 % (11.5-14.5); WHITE BLOOD COUNT 11.5 x10^3/uL (4.0-11.0)
[2018-07-14 06:30] LABS: CREATININE 1.1 mg/dL (0.7-1.3); GFR 65.6; POTASSIUM 3.9 mmol/L (3.5-5.1)
[2018-07-14] MEDS: IV NORMAL SALINE 1,000ML 1,000 ML IV SCH ×2 (08:10→20:18)
[2018-07-14] MEDS: ASPIRIN 325 MG TABLET PO SCH (08:10)
[2018-07-14] MEDS: LACTOBACILLUS RHAMNOSUS GG 1 CAPSULE. PO SCH ×2 (08:10→20:18)
[2018-07-14] MEDS: VERAPAMIL 40 MG TABLET. PO SCH ×3 (08:18→20:19)
--- NOTE | 2018-07-14 08:40 | PDOC ---
PROGRESS NOTES Diagnosis Problem Problems Medical Problems: (1) Chest pain Status: Acute (2) Viral syndrome Status: Acute Assessment Problems Medical Problems: (1) Chest pain Status: Acute (2) Viral syndrome Status: Acute 1. Chest pain - non cardiac chest pain. Normal LVEF and wall motion by echo. Luís neg. continue aspirin. metoprolol changed to verapamil for atrial tachy control. 2. atrial tachycardia - poss atrial flutter with 2:1 conduction. Stopped metoprolol and changed to verapamil yesterday morning. Transferred to ICU due to continued runs in the 180 bpm range. No arhythmias since in ICU. Continue verapamil. Plan for outpatient mct to evaluate burden. [id number] score = 2. aspirin for now. Eval for possible eliquis when ok with Sx if AF/Flutter burden elevated. 3. Acute bronchitis - mgmt per PCP 4. Hypertension - controlled. decrease ACEI to allow for increased beta liat 5. s/p recent rotator cuff surgery - mgmt per PCP Subjective no complaints of chest pain, dyspnea or palpitations. Objective tele - sinus rhythm Vital Signs Date Time Temp Pulse Resp B/P (MAP) Pulse Ox O2 Delivery O2 Flow Rate FiO2 07/14/18 08:18 58 121/61 07/14/18 07:55 Nasal Cannula 2.0 07/14/18 06:42 94 07/14/18 05:39 98.3 32 Intake and Output 07/14/18 07:00 Intake Total 3870 ml Output Total 800 ml Balance 3070 ml Intake Oral 1820 ml IV Total 2050 ml Output Urine Total 800 ml # Voids 3 # Bowel Movements 1 Physical Exam General: Alert, Oriented X3, No acute distress Lungs: Clear to auscultation, Normal air movement Heart: Normal S1, Normal S2, Other (no gallops, clicks or rubs) Abdomen: Normal bowel sounds, Soft, No tenderness Extremities: No cyanosis, Normal pulses, Other (no significant edema, right upper extremity remains in shoulder immobilizer, surgical dressing intact) Review of Relevant I have reviewed the following items garrick (where applicable) has been applied. Labs Laboratory Tests Test 07/13/18 06:05 07/14/18 05:45 White Blood Count 10.6 x10^3/uL (4.0-11.0) 11.5 x10^3/uL (4.0-11.0) Red Blood Count 3.57 x10^6/uL (4.30-5.70) 3.75 x10^6/uL (4.30-5.70) Hemoglobin 11.4 g/dL (13.0-17.5) 11.8 g/dL (13.0-17.5) Hematocrit 34.3 % (39.0-53.0) 36.2 % (39.0-53.0) Mean Corpuscular Volume 96 fL (79-100) 97 fL (79-100) Mean Corpuscular Hemoglobin 32 pg (25-35) 31 pg (25-35) Mean Corpuscular Hemoglobin Concent 33 g/dL (31-37) 33 g/dL (31-37) Red Cell Distribution Width 13.4 % (11.5-14.5) 13.7 % (11.5-14.5) Platelet Count 315 x10^3/uL (140-400) 324 x10^3/uL (140-400) Sodium Level 134 mmol/L (136-145) 122 mmol/L (136-145) Potassium Level 4.1 mmol/L (3.5-5.1) 3.9 mmol/L (3.5-5.1) Chloride Level 100 mmol/L (98-107) 94 mmol/L (98-107) Carbon Dioxide Level 24 mmol/L (21-32) 22 mmol/L (21-32) Anion Gap 10 (6-14) 6 (6-14) Blood Urea Nitrogen 18 mg/dL (8-26) 23 mg/dL (8-26) Creatinine 1.2 mg/dL (0.7-1.3) 1.1 mg/dL (0.7-1.3) Estimated GFR (Cockcroft-Gault) 59.3 65.6 BUN/Creatinine Ratio 15 (6-20) Glucose Level 101 mg/dL (70-99) 156 mg/dL (70-99) Calcium Level 8.7 mg/dL (8.5-10.1) 9.0 mg/dL (8.5-10.1) Total Bilirubin 0.4 mg/dL (0.2-1.0) Aspartate Amino Transf (AST/SGOT) 14 U/L (15-37) Alanine Aminotransferase (ALT/SGPT) 12 U/L (16-63) Alkaline Phosphatase 65 U/L (46-116) Total Protein 5.9 g/dL (6.4-8.2) Albumin 2.5 g/dL (3.4-5.0) Albumin/Globulin Ratio 0.7 (1.0-1.7) Microbiology 07/11/18 Blood Culture - Preliminary, Resulted NO GROWTH AFTER 2 DAYS... 07/11/18 Throat Screen - Final, Complete 07/11/18 Throat Culture - Final, Complete Medications Current Medications Sodium Chloride 1,000 ml @ 1,000 mls/hr 1X ONCE IV Last administered on at 15:25; Start 07/11/18 at 15:30; Stop 07/11/18 at 16:29; Status DC Ondansetron HCl (Zofran) 4 mg 1X ONCE IV Last administered on 07/11/18at 16:24; Start 07/11/18 at 15:30; Stop 07/11/18 at 15:51; Status DC Ondansetron HCl (Zofran) 4 mg STK-MED ONCE .ROUTE ; Start 07/11/18 at 15:18; Stop 07/11/18 at 15:19; Status DC Acetaminophen/ Hydrocodone Bitart (Lortab 5/325) 1 tab 1X ONCE PO ; Start at 16:45; Stop 07/11/18 at 16:45; Status DC Acetaminophen/ Hydrocodone Bitart (Lortab 10/325) 1 tab 1X ONCE PO Last administered on 07/11/18at 16:39; Start 07/11/18 at 17:00; Stop 07/11/18 at 17:01; Status DC Methylprednisolone Sodium Succinate (SOLU-Medrol 125MG VIAL) 125 mg 1X ONCE IV Last administered on 07/11/18at 17:22; Start 07/11/18 at 17:30; Stop 07/11/18 at 17:31; Status DC Aspirin (Jaelyn Aspirin) 325 mg DAILY PO Last administered on 07/14/18at 08:10; Start 07/12/18 at 09:00 Lisinopril (Prinivil) 10 mg DAILY PO Last administered on 07/13/18at 07:25; Start 07/12/18 at 09:00; Stop 07/13/18 at 12:43; Status DC Tamsulosin HCl (Flomax) 0.4 mg QHS PO Last administered on 07/13/18 21:12; Start 07/12/18 at 21:00 Tramadol HCl (Ultram) 50 mg PRN Q6HRS PRN PO PAIN Last administered on at 15:52; Start 07/12/18 at 00:15 Non-Formulary Medication (Budesonide/ Formoterol Fumarate (Symbicort 160-4.5 Mcg Inhaler)) 2 puff BID IH ; Start 07/12/18 at 09:00; Status UNV Finasteride (Proscar) 5 mg QHS PO Last administered on 07/13/18 21:12; Start at 21:00 Budesonide (Pulmicort) 0.5 mg RTBID NEB Last administered on 07/12/18at 19:59; Start 07/12/18 at 08:00; Stop 07/13/18 at 06:58; Status DC Albuterol Sulfate (Ventolin) 2.5 mg RTQID NEB Last administered on 07/12/18at 15: 26; Start 07/12/18 at 08:00; Stop 07/12/18 at 22:13; Status DC Albuterol/ Ipratropium (Duoneb) 3 ml STK-MED ONCE .ROUTE Last administered on at 05:37; Start 07/12/18 at 05:06; Stop 07/12/18 at 05:07; Status DC Morphine Sulfate (Morphine 4mg Syringe) 4 mg 1X ONCE IV Last administered on at 06:34; Start 07/12/18 at 07:00; Stop 07/12/18 at 07:01; Status DC Sodium Chloride 1,000 ml @ 1,000 mls/hr 1X ONCE IV Last administered on at 09:36; Start 07/12/18 at 07:30; Stop 07/12/18 at 08:29; Status DC Sodium Chloride 500 ml @ 0 mls/hr 1X ONCE IV ; Start 07/12/18 at 07:45; Stop 07/12/18 at 07:47; Status DC Sodium Chloride 1,000 ml @ 100 mls/hr Q10H IV Last administered on 07/14/18at 08 :10; Start 07/12/18 at 07:45 Magnesium Oxide (Magnesium Oxide) 400 mg BID PO Last administered on 07/12/18 13:58; Start 07/12/18 at 12:00; Stop 07/12/18 at 12:01; Status DC Metoprolol Tartrate (Lopressor) 25 mg BID PO Last administered on 07/13/18 07: 25; Start 07/12/18 at 12:00; Stop 07/13/18 at 12:43; Status DC Levofloxacin/ Dextrose 100 ml @ 100 mls/hr 1X ONCE IV Last administered on 17:51; Start 07/12/18 at 18:00; Stop 07/12/18 at 18:59; Status DC Levofloxacin/ Dextrose 50 ml @ 50 mls/hr Q24H IV Last administered on 07/13/18 18:00; Start 07/13/18 at 18:00 Methylprednisolone Sodium Succinate (SOLU-Medrol 40MG VIAL) 40 mg Q8HRS IV Last administered on 07/14/18 05:37; Start 07/12/18 at 22:00 Albuterol/ Ipratropium (Duoneb) 3 ml RTQID NEB Last administered on 07/13/18 05 :31; Start 07/12/18 at 20:00; Stop 07/13/18 at 06:58; Status DC Enoxaparin Sodium (Lovenox 40mg Syringe) 40 mg Q24H SQ Last administered on 07/13 15:53; Start 07/12/18 at 17:30 Lactobacillus Rhamnosus (Culturelle) 1 cap BID PO Last administered on 08:10; Start 07/12/18 at 21:00 Albuterol Sulfate (Ventolin) 2.5 mg PRN QID PRN NEB SHORTNESS OF BREATH Last administered on 07/13/18 20:31; Start 07/13/18 at 08:00 Acetaminophen (Tylenol) 650 mg PRN Q6HRS PRN PO PAIN / TEMP Last administered on 07/13/18 07:30; Start 07/13/18 at 06:00 Budesonide (Pulmicort) 0.5 mg PRN BID PRN NEB SHORTNESS OF BREATH Last administered on 07/13/18 20:31; Start 07/13/18 at 07:00 Albuterol/ Ipratropium (Duoneb) 3 ml PRN QID PRN NEB SHORTNESS OF BREATH Last administered on 07/14/18at 05:26; Start 07/13/18 at 07:00 Lisinopril (Prinivil) 5 mg DAILY PO ; Start 07/14/18 at 09:00; Stop 07/14/18 at 09 :00; Status DC Metoprolol Tartrate (Lopressor) 50 mg BID PO ; Start 07/13/18 at 21:00; Stop 07/13 at 21:00; Status DC Verapamil HCl (Calan) 40 mg TID PO Last administered on 07/13/18at 13:42; Start 07/13/18 at 13:00 Diltiazem HCl 125 mg/Dextrose 125 ml @ 5 mls/hr PRN 1X PRN IV SEE I/O RECORD; Start 07/13/18 at 18:45 Active Scripts Active Reported Symbicort 160-4.5 Mcg Inhaler (Budesonide/Formoterol Fumarate) 10.2 Gm Hfa.aer.ad 2 Puff IH BID Tramadol Hcl (Tramadol HCl) 50 Mg Tablet 50 Mg PO PRN Q6HRS PRN Finasteride 5 Mg Tablet 5 Mg PO QHS Tamsulosin Hcl 0.4 Mg Cap.er.24h 0.4 Mg PO QHS Lisinopril 10 Mg Tablet 10 Mg PO DAILY Aspirin 325 Mg Tablet 325 Mg PO DAILY Vitals/I & O Vital Sign - Last 24 Hours 07/13/18 07/13/18 07/13/18 07/13/18 09:18 10:45 13:42 14:54 Temp 97.6 98.1 Pulse 77 77 81 Resp 20 20 B/P (MAP) 114/73 (87) 114/73 116/69 (85) Pulse Ox 97 95 95 O2 Delivery Nasal Cannula Nasal Cannula Nasal Cannula O2 Flow Rate 2.0 2.0 2.0 07/13/18 07/13/18 07/13/18 07/13/18 15:52 15:56 16:43 19:07 Temp 98.2 98.5 Pulse 80 77 Resp 24 30 B/P (MAP) 117/71 (86) 115/65 (82) Pulse Ox 95 94 94 93 O2 Delivery Nasal Cannula Nasal Cannula Nasal Cannula Nasal Cannula O2 Flow Rate 1.5 2.0 1.5 1.5 07/13/18 07/13/18 07/13/18 07/13/18 20:27 20:28 20:32 20:32 Pulse 84 B/P (MAP) 127/65 (85) Pulse Ox 94 95 95 O2 Delivery Nasal Cannula Nasal Cannula Nasal Cannula Nasal Cannula O2 Flow Rate 2.0 2.0 2.0 2.0 07/13/18 07/13/18 07/13/18 07/13/18 21:12 21:40 22:39 22:45 Pulse 76 71 62 69 Resp 28 20 B/P (MAP) 101/59 (73) 101/55 (70) 98/57 (71) 98/57 Pulse Ox 92 93 O2 Delivery Nasal Cannula Nasal Cannula Nasal Cannula O2 Flow Rate 2.0 2.0 2.0 07/13/18 07/14/18 07/14/18 07/14/18 23:38 00:54 00:55 02:02 Temp 98.6 Pulse 67 61 68 Resp 28 30 22 B/P (MAP) 111/63 (79) 110/66 (81) 106/61 (76) Pulse Ox 93 94 93 O2 Delivery Nasal Cannula Nasal Cannula Nasal Cannula Nasal Cannula O2 Flow Rate 2.0 2.0 2.0 2.0 07/14/18 07/14/18 07/14/18 07/14/18 02:40 03:40 04:38 05:29 Pulse 50 69 54 B/P (MAP) 101/56 (71) 114/66 (82) 101/58 (72) Pulse Ox 93 93 93 94 O2 Delivery Nasal Cannula Nasal Cannula Nasal Cannula Nasal Cannula O2 Flow Rate 2.0 2.0 2.0 07/14/18 07/14/18 07/14/18 07/14/18 05:30 05:39 06:42 07:55 Temp 98.3 Pulse 78 65 Resp 32 B/P (MAP) 108/58 (75) 101/53 (69) Pulse Ox 95 94 O2 Delivery Nasal Cannula Nasal Cannula Nasal Cannula Nasal Cannula O2 Flow Rate 2.0 2.0 2.0 2.0 07/14/18 07/14/18 07:57 08:18 Pulse 68 58 B/P (MAP) 84/53 (63) 121/61 Intake and Output 07/13/18 07/13/18 07/14/18 15:00 23:00 07:00 Intake Total 1540 ml 1630 ml 700 ml Output Total 500 ml 300 ml Balance 1540 ml 1130 ml 400 ml MARGIE NORIEGA APRN Jul 14, 2018 08:40
[2018-07-14] MEDS ORDERED: LISINOPRIL 5 MG TABLET. PO SCH (09:00)
[2018-07-14 10:52] LABS: CALCIUM 8.9 mg/dL (8.5-10.1); CREATININE 1.2 mg/dL (0.7-1.3); GFR 59.3; POTASSIUM 4.2 mmol/L (3.5-5.1)
[2018-07-14] MEDS: traMADol 50 MG TABLET PO PRN ×2 (13:26→20:18)
[2018-07-14] MEDS: ENOXAPARIN 40 MG/0.4 ML SYRINGE. SQ SCH (17:38)
--- NOTE | 2018-07-14 18:40 | PN ---
DATE: 07/14/2018 SUBJECTIVE: The patient is resting, slightly propped up in bed, in no apparent respiratory distress. He continued to complain of chest pain especially on coughing and expectorating yellowish sputum. Denied any chills, rigors, or fever. OBJECTIVE: GENERAL: When I examined him, he looked pale, but no jaundice, cyanosis, or thyromegaly. No jugular venous distension. No lower limb edema. VITAL SIGNS: His heart rate was 58, blood pressure 121/61, temperature was 98.3, respiratory rate was 20, and oxygen saturation was 94% on 2 liters of oxygen. HEAD, EYES, EARS, NOSE, AND THROAT: Showed normocephalic, atraumatic. NECK: Supple. HEART: Showed normal first and second heart sounds. No gallop, rub, or murmur. CHEST: Clear to auscultation. No crepitation or rhonchi. ABDOMEN: Distended, soft, nontender. No guarding or rigidity. No organomegaly. All hernial orifices intact. Bowel sounds normal. NEUROLOGIC: He was awake, alert, responding appropriately. All cranial nerves intact. He moves extremities without difficulty. He is able to ambulate without assistance or assistive devices. His intake was 3400, no output was recorded. LABORATORY DATA: His lab work as of this morning showed white cell count of 11,500, hemoglobin 12, hematocrit 36, MCV 97, and platelet count 324,000. His serum sodium down to 122, potassium 3.9, chloride 94, bicarbonate 22, anion gap of 6, BUN 23, creatinine 1.1. Estimated GFR was 65 mL per minute, his glucose 156, calcium was 9. His total bilirubin, AST, ALT, alkaline phosphatase were normal. Total protein was 5.9, albumin was 2.5. His nasal screen for MRSA PCR was negative. His influenza A and B were negative. So far, his throat culture was negative and his blood culture so far showed no growth. ASSESSMENT: 1. Chest pain, most likely musculoskeletal. So far, his cardiac enzymes and EKGs have ruled out myocardial infarction. His EKG is consistent probably with atrial tachycardia versus atrial fibrillation or flutter. 2. Chronic obstructive pulmonary disease exacerbation. 3. Hypertension. 4. Acute bronchitis. 5. Recent surgery for his rotator cuff tear, undergoing reverse right shoulder arthroplasty. PLAN: My plan is to continue with IV Solu-Medrol. Continue with the IV Levaquin. Continue DVT prophylaxis. He was started on verapamil. So far, his heart rate and blood pressure were well controlled. I will check his sodium again as for some reason all my patients today have hyponatremia. KAREN MARUQEZ MD DR: KIERAN/teresa JOB#: [id number] / [id number]
[2018-07-14] MEDS: FINASTERIDE 5 MG TABLET PO SCH (20:18)
[2018-07-14] MEDS: TAMSULOSIN 0.4 MG CAP.ER.24H. PO SCH (20:18)
[2018-07-15 05:03] VITALS: BP 119/74
[2018-07-15] MEDS: IV NORMAL SALINE 1,000ML 1,000 ML IV SCH ×2 (05:21→15:45)
[2018-07-15] MEDS: methylPREDNISolone SOD SUCC PF 40 MG/ML VIAL. IV SCH ×2 (05:21→17:58)
[2018-07-15 06:23] LABS: BASO % 0 % (0-3); EOS % 0 % (0-3); HEMATOCRIT 33.4 % (39.0-53.0); HEMOGLOBIN 10.8 g/dL (13.0-17.5); LYMPH # 0.9 x10^3/uL (1.0-4.8); LYMPH % 7 % (24-48); MEAN CORPUSCULAR HEMOGLOBIN 31 pg (25-35); MEAN CORPUSCULAR HGB CONC 33 g/dL (31-37); MEAN CORPUSCULAR VOLUME 95 fL (79-100); MONO # 0.6 x10^3/uL (0.0-1.1); MONO % 5 % (0-9); NEUT # 11.2 x10^3uL (1.8-7.7); NEUT % 88 % (31-73); PLATELET COUNT 365 x10^3/uL (140-400); RED BLOOD COUNT 3.51 x10^6/uL (4.30-5.70); RED CELL DISTRIBUTION WIDTH 13.6 % (11.5-14.5); WHITE BLOOD COUNT 12.8 x10^3/uL (4.0-11.0)
[2018-07-15 06:40] LABS: ALBUMIN 2.5 g/dL (3.4-5.0); ALBUMIN/GLOBULIN RATIO 0.8 (1.0-1.7); CALCIUM 8.6 mg/dL (8.5-10.1); CREATININE 1.1 mg/dL (0.7-1.3); GFR 65.6; POTASSIUM 4.4 mmol/L (3.5-5.1); TOTAL BILIRUBIN 0.2 mg/dL (0.2-1.0); TOTAL PROTEIN 5.7 g/dL (6.4-8.2)
[2018-07-15 06:56] LABS: % BANDS 2 % (0-9); % BASOS 1 % (0-3); % LYMPHS 5 % (24-48); % MONOS 3 % (0-10); % SEGS 89 % (35-66)
[2018-07-15 06:57] LABS: PLT ESTIMATE INCREASED (ADEQUATE)
[2018-07-15] MEDS: ASPIRIN 325 MG TABLET PO SCH (08:44)
[2018-07-15] MEDS: VERAPAMIL 40 MG TABLET. PO SCH ×3 (08:45→21:32)
[2018-07-15] MEDS: LACTOBACILLUS RHAMNOSUS GG 1 CAPSULE. PO SCH ×2 (08:46→21:31)
[2018-07-15] MEDS: IPRATRPIUM/ALBUTEROL 0.5/2.5MG 3 ML NEBU. NEB PRN (10:51)
[2018-07-15 11:10] VITALS: BP 132/72
[2018-07-15] MEDS: dilTIAZem 25 MG/5 ML VIAL IVP ONE (13:45)
[2018-07-15 15:00] VITALS: BP 121/69
[2018-07-15] MEDS: ENOXAPARIN 40 MG/0.4 ML SYRINGE. SQ SCH (18:00)
[2018-07-15 19:22] VITALS: BP 122/72
--- NOTE | 2018-07-15 21:19 | PN ---
DATE: 07/15/2018 SUBJECTIVE: The patient is sitting in the edge of the bed comfortably in no apparent distress. He feels generally much improved, although continued to have cough and shortness of breath. His rate has been stable for more than 48 hours now with no further episodes of atrial fibrillation/atrial flutter. OBJECTIVE: GENERAL: When I examined him today, he looked somewhat pale, but no jaundice, cyanosis, lymphadenopathy or thyromegaly. No jugular venous distension. No lower limb edema. VITAL SIGNS: His heart rate was 76, blood pressure 132/72, temperature was 97.9, respiratory rate 20, and oxygen saturation was 97% on room air. HEAD, EYES, EARS, NOSE AND THROAT: Showed normocephalic, atraumatic. NECK: Supple. HEART: Showed normal first and second heart sounds. No gallop or murmur. CHEST: Showed central trachea, equal bilateral chest expansion, very few crackles mostly in the left side posteriorly. I could not appreciate any rhonchi. ABDOMEN: Distended, soft, nontender. No guarding or rigidity. No organomegaly. Hernial orifice intact. Bowel sounds normal. NEUROLOGIC: He is awake, alert, responding appropriately. All cranial nerves intact. He moves extremities without difficulty. He is in the right shoulder immobilizer. His kalli were removed and his surgical wound has healed nicely with no redness, tenderness or discharge. His intake over the last 24 hours was 3870, output was 800. LABORATORY DATA: Her lab work this morning showed a white cell count 12,800, hemoglobin 10.8, hematocrit 33, MCV 95, and platelet count 365,000. His chemistry showed a serum sodium of 138, potassium 4.4, chloride 106, bicarbonate 20, anion gap 12, BUN 28, creatinine 1.1, estimated GFR was 65 mL per minute. His glucose was 137, calcium was 8.6. Total bilirubin, AST, ALT, alkaline phosphatase were normal. Total protein was 5.7, albumin was 2.5. ASSESSMENT: 1. Chest pain, most likely musculoskeletal. All his cardiac enzymes and EKGs have ruled out myocardial infarction. His EKG is consistent probably with atrial tachycardia versus atrial fibrillation or flutter. However, his heart rate now has been well controlled on verapamil 40 mg 3 times a day. 2. Left lower lobe infiltrate for which he is on Levaquin. 3. Chronic obstructive pulmonary disease exacerbation. 4. Hypertension. 5. Acute kidney injury, resolving. His creatinine came down from 1.8 down to 1.1. 6. Hyponatremia and hypokalemia, both have resolved. PLAN: My plan is to cut down on his Solu-Medrol today to twice a day and hopefully discharge him home tomorrow. KAREN MARQUEZ MD DR: KIERAN/teresa JOB#: [id number] / [id number]
[2018-07-15] MEDS: FINASTERIDE 5 MG TABLET PO SCH (21:31)
[2018-07-15] MEDS: TAMSULOSIN 0.4 MG CAP.ER.24H. PO SCH (21:31)
[2018-07-15] MEDS: traMADol 50 MG TABLET PO PRN (21:42)
[2018-07-15 23:10] VITALS: BP 120/77
[2018-07-16] VITALS (22 sets, daily range): BP systolic 90–149; BP diastolic 50–76
[2018-07-16] MEDS: dilTIAZem 25 MG/5 ML VIAL IVP ONE (03:10)
[2018-07-16 03:49] LABS: BASO % 0 % (0-3); EOS % 0 % (0-3); HEMATOCRIT 35.2 % (39.0-53.0); HEMOGLOBIN 11.8 g/dL (13.0-17.5); LYMPH % 9 % (24-48); MEAN CORPUSCULAR HEMOGLOBIN 32 pg (25-35); MEAN CORPUSCULAR HGB CONC 34 g/dL (31-37); MEAN CORPUSCULAR VOLUME 95 fL (79-100); MONO # 0.7 x10^3/uL (0.0-1.1); MONO % 6 % (0-9); NEUT # 9.9 x10^3uL (1.8-7.7); NEUT % 85 % (31-73); PLATELET COUNT 391 x10^3/uL (140-400); RED BLOOD COUNT 3.72 x10^6/uL (4.30-5.70); RED CELL DISTRIBUTION WIDTH 13.4 % (11.5-14.5); WHITE BLOOD COUNT 11.7 x10^3/uL (4.0-11.0)
[2018-07-16 04:00] LABS: ALBUMIN 2.7 g/dL (3.4-5.0); CALCIUM 8.7 mg/dL (8.5-10.1); CREATININE 1.1 mg/dL (0.7-1.3); GFR 65.6; MAGNESIUM 1.9 mg/dL (1.8-2.4); POTASSIUM 4.6 mmol/L (3.5-5.1); TOTAL BILIRUBIN 0.2 mg/dL (0.2-1.0); TOTAL PROTEIN 5.5 g/dL (6.4-8.2)
[2018-07-16] MEDS: dilTIAZem VIAL 125 MG in IV DEXTROSE 5% 100 ML IV PRN (04:30)
[2018-07-16] MEDS ORDERED: BENZOCAINE/MENTHOL LOZNGE 18'S BOX. PO PRN (05:30)
[2018-07-16] MEDS: traMADol 50 MG TABLET PO PRN ×3 (05:34→18:14)
[2018-07-16] MEDS: methylPREDNISolone SOD SUCC PF 40 MG/ML VIAL. IV SCH ×2 (05:36→18:06)
[2018-07-16] MEDS: IV NORMAL SALINE 1,000ML 1,000 ML IV SCH ×2 (05:40→18:10)
[2018-07-16] MEDS ORDERED: IOHEXOL 350 MG/ML 100 ML VIAL. IV ONE (07:00)
[2018-07-16] MEDS ORDERED: CONTRAST GIVEN MC PRN (07:00)
[2018-07-16] MEDS: MAGNESIUM SULFATE 2GM 50 ML IV SCH (08:24)
[2018-07-16] MEDS: ASPIRIN 325 MG TABLET PO SCH (08:24)
[2018-07-16] MEDS: VERAPAMIL 40 MG TABLET. PO SCH (08:24)
[2018-07-16] MEDS: LACTOBACILLUS RHAMNOSUS GG 1 CAPSULE. PO SCH ×2 (08:24→21:35)
--- NOTE | 2018-07-16 08:56 | RAD ---
CT arteriogram of the chest. HISTORY: COPD, short of breath CT arteriogram of the chest was done using 90 mL Omnipaque 350 contrast. Sagittal and coronal MIP images were reconstructed. Thyroid is homogeneous. There is no mediastinal adenopathy. There is respiratory motion artifact. There is a small cyst in the liver. Adrenal glands are normal. There are left renal cysts. There is mild atelectasis or infiltrate in the left lung base with a small left effusion. The respiratory motion markedly limits the study. There are no large or central pulmonary emboli , segmental or subsegmental emboli would be difficult to exclude. IMPRESSION: 1. Limited study with respiratory motion. 2. Mild left lower lobe infiltrate or atelectasis with small left effusion. 3. No large or central pulmonary embolus. Electronically signed by: William Adhikari MD (07/16/2018 8:53 AM) [facility]
--- NOTE | 2018-07-16 17:51 | PN ---
DATE: 07/16/2018 SUBJECTIVE: Overnight, the patient had episodes of atrial fibrillation with rapid ventricular response and some shortness of breath, which prompted transfer back to the ICU. He was started on a Cardizem drip and has been stabilized with heart rates in the low 100s since then. In talking with the patient today, he denies any current chest pain. No syncope, but did have some palpitations and chest pressure earlier when his heart rate was as high as 180. OBJECTIVE: VITAL SIGNS: Afebrile, 105, 20, 97/68, 96% on 2 liters nasal cannula. GENERAL: He is alert and oriented, no acute distress and sitting at the edge of the bed, eating. LUNGS: Notable for decreased breath sounds bilaterally without any wheezing. HEART: Distant heart sounds with irregular heart tones. No obvious murmurs. EXTREMITIES: No significant lower extremity edema. DIAGNOSTIC STUDIES: D-dimer is elevated at 0.99. Creatinine is stable at 1.1 and cardiac enzymes are negative x 2. Hemoglobin is stable at 11.8 with a platelet count of 391. CTA of the chest was performed and notable for lower lobe infiltrate versus atelectasis, but otherwise no significant large central pulmonary embolus. ASSESSMENT: 1. Paroxysmal atrial fibrillation. 2. Chronic obstructive pulmonary disease exacerbation. 3. Hypertension. 4. Status post recent rotator cuff surgery on the right side. RECOMMENDATIONS: 1. At this present time, we will stop his verapamil. Continue his diltiazem drip and change him to Cardizem 120 mg daily. 2. We will initiate Eliquis therapy due to his persistent atrial fibrillation and risk factors. Discussed risks and benefits with the patient. 3. We will start him on low-dose flecainide therapy and determine any improvement in his arrhythmias. We would defer amiodarone given his history of COPD. 4. If he has any bradycardia issues. 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 Discussed with the patient. Thank you for this consultation. WALLY BASS MD DR: LONNIE/teresa JOB#: [id number] / [id number] MOIRA
--- NOTE | 2018-07-16 18:47 | PN ---
DATE: 07/16/2018 SUBJECTIVE: The patient is resting, slightly propped up in bed, in no apparent distress. He apparently went again into atrial fibrillation, rapid ventricular response, was treated with a Cardizem drip and was transferred to ICU. He did have also CT angio of the chest, which showed that was negative for pulmonary emboli. The patient continued to have cough with whitish sputum. PHYSICAL EXAMINATION: GENERAL: When I examined him this morning, he was resting slightly propped up in bed, in no apparent respiratory distress. No pallor, jaundice, cyanosis, or thyromegaly. No jugular venous distension. No limb edema. VITAL SIGNS: His heart rate was 105, blood pressure 113/70, temperature was 98.2, respiratory rate was 22 and oxygen saturation was 95% on 2 liters of oxygen. HEAD, EYES, EARS, NOSE AND THROAT: Showed normocephalic, atraumatic. NECK: Supple. HEART: Showed normal first and second heart sounds. No gallop or murmur. CHEST: Clear to auscultation. No crepitation or rhonchi. ABDOMEN: Distended, soft, nontender. No guarding or rigidity. No organomegaly. All hernial orifices are intact. Bowel sounds are normal. NEUROLOGIC: He was awake, alert, responding appropriately. All cranial nerves are intact. He moves extremities without difficulty. He ambulates without assistance or assistive devices. LABORATORY DATA: His serum sodium was 138, potassium 4.6, chloride 105, bicarbonate 21, anion gap of 12, BUN 29, creatinine 1.1, estimated GFR was 65 mL per minute, his glucose 148, calcium was 8.7, magnesium was 1.9. Total bilirubin, AST, ALT, alkaline phosphatase were normal. His total protein was 5.5, albumin 2.7. White cell count is 11,700, hemoglobin 11.8, hematocrit 35, MCV 95, and platelet count ____. His D-dimer was high at 0.99. His influenza A and B were negative. Group A Streptococcus was negative. His nasal screen for MRSA PCR was negative. ASSESSMENT: 1. Chest pain, most likely musculoskeletal and has 3 sets of cardiac enzymes, ruled out myocardial infarction. However, his EKG is consistent probably with atrial tachycardia versus fibrillation flutter. He was tried on verapamil 40 mg, but he continued to relapse and he is now on a Cardizem drip. 2. Left lower lobe infiltrate for which he is on Levaquin. 3. Chronic obstructive pulmonary disease exacerbation. 4. Hypertension. 5. Acute kidney injury, resolving. His creatinine is down from 1.8 to 1.1. 6. Hyponatremia and hypokalemia have both resolved. PLAN: To continue with nebulized treatments, continue with steroids. Continue with diltiazem drip. KAREN MARQUEZ MD DR: KIERAN/teresa JOB#: [id number] / [id number]
[2018-07-16] MEDS: FINASTERIDE 5 MG TABLET PO SCH (21:35)
[2018-07-16] MEDS: APIXABAN 5 MG TABLET. PO SCH (21:35)
[2018-07-16] MEDS: TAMSULOSIN 0.4 MG CAP.ER.24H. PO SCH (21:35)
[2018-07-16] MEDS: FLECAINIDE 50 MG TABLET. PO SCH (21:40)
[2018-07-17] VITALS (14 sets, daily range): BP systolic 105–155; BP diastolic 66–95
[2018-07-17] MEDS: dilTIAZem VIAL 125 MG in IV DEXTROSE 5% 100 ML IV PRN ×2 (04:48→22:17)
[2018-07-17] MEDS: methylPREDNISolone SOD SUCC PF 40 MG/ML VIAL. IV SCH (05:25)
[2018-07-17] MEDS: IV NORMAL SALINE 1,000ML 1,000 ML IV SCH ×3 (05:26→17:45)
[2018-07-17] MEDS: traMADol 50 MG TABLET PO PRN ×2 (05:26→16:31)
[2018-07-17 06:52] LABS: CALCIUM 8.3 mg/dL (8.5-10.1); CREATININE 1.1 mg/dL (0.7-1.3); GFR 65.6; MAGNESIUM 2.1 mg/dL (1.8-2.4); POTASSIUM 4.2 mmol/L (3.5-5.1)
--- NOTE | 2018-07-17 08:43 | PDOC ---
PROGRESS NOTES Diagnosis Problem Problems Medical Problems: (1) Chest pain Status: Acute (2) Viral syndrome Status: Acute Assessment Problems Medical Problems: (1) Chest pain Status: Acute (2) Viral syndrome Status: Acute 1. atrial fibrillation - rate controlled at rest. still tachycardic with minimal activity. 1st dose flecanide last pm. continue cardizem and flecanide. consider increase dosage if remains tachy this afternoon. On Eliquis for stroke prophylaxis. 2. Chest pain - non cardiac chest pain. Normal LVEF and wall motion by echo. Luís neg. continue aspirin. 3. Acute bronchitis - mgmt per PCP 4. Hypertension - controlled. 5. s/p recent rotator cuff surgery - mgmt per PCP Subjective complains of cough, breathing better, no chest pain, no lightheadedness Objective Vital Signs Date Time Temp Pulse Resp B/P (MAP) Pulse Ox O2 Delivery O2 Flow Rate FiO2 07/17/18 07:51 98.2 73 18 108/77 (87) 95 Nasal Cannula 2.0 Intake and Output 07/17/18 07:00 Intake Total 1695 ml Balance 1695 ml Intake Oral 570 ml IV Total 1125 ml # Voids 8 # Bowel Movements 1 Abdomen: Normal bowel sounds, Soft, No tenderness Heart: Other (IRR, no gallops, clicks or rubs) Extremities: No cyanosis, No edema, Normal pulses General: Alert, Oriented X3, Cooperative HEENT: Atraumatic, EOMI Lungs: Other (expiratory wheezes) Neck: No JVD Neuro: Normal speech, Cranial nerves 3-12 NL Psych/Mental Status: Mental status NL, Mood NL Review of Relevant I have reviewed the following items garrick (where applicable) has been applied. Labs Laboratory Tests Test 07/16/18 03:30 07/16/18 12:19 07/17/18 05:50 White Blood Count 11.7 x10^3/uL (4.0-11.0) Red Blood Count 3.72 x10^6/uL (4.30-5.70) Hemoglobin 11.8 g/dL (13.0-17.5) Hematocrit 35.2 % (39.0-53.0) Mean Corpuscular Volume 95 fL (79-100) Mean Corpuscular Hemoglobin 32 pg (25-35) Mean Corpuscular Hemoglobin Concent 34 g/dL (31-37) Red Cell Distribution Width 13.4 % (11.5-14.5) Platelet Count 391 x10^3/uL (140-400) Neutrophils (%) (Auto) 85 % (31-73) Lymphocytes (%) (Auto) 9 % (24-48) Monocytes (%) (Auto) 6 % (0-9) Eosinophils (%) (Auto) 0 % (0-3) Basophils (%) (Auto) 0 % (0-3) Neutrophils # (Auto) 9.9 x10^3uL (1.8-7.7) Lymphocytes # (Auto) 1.0 x10^3/uL (1.0-4.8) Monocytes # (Auto) 0.7 x10^3/uL (0.0-1.1) Eosinophils # (Auto) 0.0 x10^3/uL (0.0-0.7) Basophils # (Auto) 0.0 x10^3/uL (0.0-0.2) D-Dimer (Ronel) 0.99 mg/L (0.00-0.50) Sodium Level 138 mmol/L (136-145) 136 mmol/L (136-145) Potassium Level 4.6 mmol/L (3.5-5.1) 4.2 mmol/L (3.5-5.1) Chloride Level 105 mmol/L (98-107) 103 mmol/L (98-107) Carbon Dioxide Level 21 mmol/L (21-32) 23 mmol/L (21-32) Anion Gap 12 (6-14) 10 (6-14) Blood Urea Nitrogen 29 mg/dL (8-26) 26 mg/dL (8-26) Creatinine 1.1 mg/dL (0.7-1.3) 1.1 mg/dL (0.7-1.3) Estimated GFR (Cockcroft-Gault) 65.6 65.6 BUN/Creatinine Ratio 26 (6-20) Glucose Level 148 mg/dL (70-99) 126 mg/dL (70-99) Calcium Level 8.7 mg/dL (8.5-10.1) 8.3 mg/dL (8.5-10.1) Magnesium Level 1.9 mg/dL (1.8-2.4) 2.1 mg/dL (1.8-2.4) Total Bilirubin 0.2 mg/dL (0.2-1.0) Aspartate Amino Transf (AST/SGOT) 29 U/L (15-37) Alanine Aminotransferase (ALT/SGPT) 60 U/L (16-63) Alkaline Phosphatase 66 U/L (46-116) Troponin I Quantitative < 0.017 ng/mL (0-0.055) < 0.017 ng/mL (0-0.055) Total Protein 5.5 g/dL (6.4-8.2) Albumin 2.7 g/dL (3.4-5.0) Albumin/Globulin Ratio 1.0 (1.0-1.7) Creatine Kinase 149 U/L (39-308) Thyroxine (T4) 6.0 ug/dL (4.5-12.0) Total Triiodothyronine 50 ng/dL (71-180) Microbiology 07/11/18 Blood Culture - Final, Complete NO GROWTH AFTER 5 DAYS... 07/11/18 Throat Screen - Final, Complete 07/11/18 Throat Culture - Final, Complete Medications Current Medications Sodium Chloride 1,000 ml @ 1,000 mls/hr 1X ONCE IV Last administered on at 15:25; Start 07/11/18 at 15:30; Stop 07/11/18 at 16:29; Status DC Ondansetron HCl (Zofran) 4 mg 1X ONCE IV Last administered on 07/11/18at 16:24; Start 07/11/18 at 15:30; Stop 07/11/18 at 15:51; Status DC Ondansetron HCl (Zofran) 4 mg STK-MED ONCE .ROUTE ; Start 07/11/18 at 15:18; Stop 07/11/18 at 15:19; Status DC Acetaminophen/ Hydrocodone Bitart (Lortab 5/325) 1 tab 1X ONCE PO ; Start at 16:45; Stop 07/11/18 at 16:45; Status DC Acetaminophen/ Hydrocodone Bitart (Lortab 10/325) 1 tab 1X ONCE PO Last administered on 07/11/18at 16:39; Start 07/11/18 at 17:00; Stop 07/11/18 at 17:01; Status DC Methylprednisolone Sodium Succinate (SOLU-Medrol 125MG VIAL) 125 mg 1X ONCE IV Last administered on 07/11/18 17:22; Start 07/11/18 at 17:30; Stop 07/11/18 at 17:31; Status DC Aspirin (Jaelyn Aspirin) 325 mg DAILY PO Last administered on 07/16/18 08:24; Start 07/12/18 at 09:00; Stop 07/16/18 at 17:36; Status DC Lisinopril (Prinivil) 10 mg DAILY PO Last administered on 07/13/18 07:25; Start 07/12/18 at 09:00; Stop 07/13/18 at 12:43; Status DC Tamsulosin HCl (Flomax) 0.4 mg QHS PO Last administered on 07/16/18 21:35; Start 07/12/18 at 21:00 Tramadol HCl (Ultram) 50 mg PRN Q6HRS PRN PO PAIN Last administered on 05:26; Start 07/12/18 at 00:15 Non-Formulary Medication (Budesonide/ Formoterol Fumarate (Symbicort 160-4.5 Mcg Inhaler)) 2 puff BID IH ; Start 07/12/18 at 09:00; Status UNV Finasteride (Proscar) 5 mg QHS PO Last administered on 07/16/18 21:35; Start 07/12/18 at 21:00 Budesonide (Pulmicort) 0.5 mg RTBID NEB Last administered on 07/12/18 19:59; Start 07/12/18 at 08:00; Stop 07/13/18 at 06:58; Status DC Albuterol Sulfate (Ventolin) 2.5 mg RTQID NEB Last administered on 07/12/18 15: 26; Start 07/12/18 at 08:00; Stop 07/12/18 at 22:13; Status DC Albuterol/ Ipratropium (Duoneb) 3 ml STK-MED ONCE .ROUTE Last administered on 05:37; Start 07/12/18 at 05:06; Stop 07/12/18 at 05:07; Status DC Morphine Sulfate (Morphine 4mg Syringe) 4 mg 1X ONCE IV Last administered on 06:34; Start 07/12/18 at 07:00; Stop 07/12/18 at 07:01; Status DC Sodium Chloride 1,000 ml @ 1,000 mls/hr 1X ONCE IV Last administered on at 09:36; Start 07/12/18 at 07:30; Stop 07/12/18 at 08:29; Status DC Sodium Chloride 500 ml @ 0 mls/hr 1X ONCE IV ; Start 07/12/18 at 07:45; Stop 07/12/18 at 07:47; Status DC Sodium Chloride 1,000 ml @ 100 mls/hr Q10H IV Last administered on 07/17/18at 05:26; Start 07/12/18 at 07:45 Magnesium Oxide (Magnesium Oxide) 400 mg BID PO Last administered on 07/12/18at 13:58; Start 07/12/18 at 12:00; Stop 07/12/18 at 12:01; Status DC Metoprolol Tartrate (Lopressor) 25 mg BID PO Last administered on 07/13/18at 07: 25; Start 07/12/18 at 12:00; Stop 07/13/18 at 12:43; Status DC Levofloxacin/ Dextrose 100 ml @ 100 mls/hr 1X ONCE IV Last administered on 07/12/18at 17:51; Start 07/12/18 at 18:00; Stop 07/12/18 at 18:59; Status DC Levofloxacin/ Dextrose 50 ml @ 50 mls/hr Q24H IV Last administered on at 18:07; Start 07/13/18 at 18:00 Methylprednisolone Sodium Succinate (SOLU-Medrol 40MG VIAL) 40 mg Q8HRS IV Last administered on 07/15/18at 05:21; Start 07/12/18 at 22:00; Stop 07/15/18 at 11: 31; Status DC Albuterol/ Ipratropium (Duoneb) 3 ml RTQID NEB Last administered on 07/13/18at 05 :31; Start 07/12/18 at 20:00; Stop 07/13/18 at 06:58; Status DC Enoxaparin Sodium (Lovenox 40mg Syringe) 40 mg Q24H SQ Last administered on 07/15at 18:00; Start 07/12/18 at 17:30; Stop 07/16/18 at 17:39; Status DC Lactobacillus Rhamnosus (Culturelle) 1 cap BID PO Last administered on 21:35; Start 07/12/18 at 21:00 Albuterol Sulfate (Ventolin) 2.5 mg PRN QID PRN NEB SHORTNESS OF BREATH Last administered on 07/13/18 20:31; Start 07/13/18 at 08:00 Acetaminophen (Tylenol) 650 mg PRN Q6HRS PRN PO PAIN / TEMP Last administered on 07/13/18 07:30; Start 07/13/18 at 06:00 Budesonide (Pulmicort) 0.5 mg PRN BID PRN NEB SHORTNESS OF BREATH Last administered on 07/13/18 20:31; Start 07/13/18 at 07:00 Albuterol/ Ipratropium (Duoneb) 3 ml PRN QID PRN NEB SHORTNESS OF BREATH Last administered on 07/15/18at 10:51; Start 07/13/18 at 07:00 Lisinopril (Prinivil) 5 mg DAILY PO ; Start 07/14/18 at 09:00; Stop 07/14/18 at 09 :00; Status DC Metoprolol Tartrate (Lopressor) 50 mg BID PO ; Start 07/13/18 at 21:00; Stop 07/13 at 21:00; Status DC Verapamil HCl (Calan) 40 mg TID PO Last administered on 07/16/18at 08:24; Start 07/13/18 at 13:00; Stop 07/16/18 at 17:36; Status DC Diltiazem HCl 125 mg/Dextrose 125 ml @ 5 mls/hr PRN 1X PRN IV SEE I/O RECORD Last administered on 07/17/18at 04:48; Start 07/13/18 at 18:45 Methylprednisolone Sodium Succinate (SOLU-Medrol 40MG VIAL) 40 mg Q12H IV Last administered on 07/17/18at 05:25; Start 07/15/18 at 18:00; Stop 07/17/18 at 06:57 ; Status DC Diltiazem HCl (Cardizem Iv Push) 25 mg 1X ONCE IVP Last administered on at 03:10; Start 07/15/18 at 13:45; Stop 07/15/18 at 13:46; Status DC Diltiazem HCl (Cardizem) 125 mg STK-MED ONCE IV ; Start 07/16/18 at 04:03; Stop 07/16/18 at 04:04; Status DC Throat Lozenges (Cepacol Sore Throat Lozenge) 1 carl PRN Q2HR PRN PO SORE THROAT Last administered on 07/16/18at 05:35; Start 07/16/18 at 05:30 Magnesium Sulfate 50 ml @ 50 mls/hr DAILY IV Last administered on 07/16/18at 08: 24; Start 07/16/18 at 09:00; Stop 07/19/18 at 08:59 Iohexol (Omnipaque 350 Mg/ml) 100 ml 1X ONCE IV Last administered on at 07:52; Start 07/16/18 at 07:00; Stop 07/16/18 at 07:01; Status DC Info (Do NOT chart on this entry -- for MONITORING) 1 each PRN DAILY PRN MC SEE COMMENTS; Start 07/16/18 at 07:00; Stop 07/18/18 at 06:59 Diltiazem HCl (Cardizem 24hr Cd) 120 mg 1X ONCE PO Last administered on at 18:06; Start 07/16/18 at 17:45; Stop 07/16/18 at 17:46; Status DC Diltiazem HCl (Cardizem 24hr Cd) 120 mg DAILY PO ; Start 07/17/18 at 09:00 Apixaban (Eliquis) 5 mg BID PO Last administered on 07/16/18at 21:35; Start 02/24 at 21:00 Flecainide Acetate (Tambocor) 50 mg Q12HR PO Last administered on 07/16/18at 21: 40; Start 07/16/18 at 21:00 Prednisone (Prednisone) 40 mg DAILY PO ; Start 07/17/18 at 09:00 Active Scripts Active Reported Symbicort 160-4.5 Mcg Inhaler (Budesonide/Formoterol Fumarate) 10.2 Gm Hfa.aer.ad 2 Puff IH BID Tramadol Hcl (Tramadol HCl) 50 Mg Tablet 50 Mg PO PRN Q6HRS PRN Finasteride 5 Mg Tablet 5 Mg PO QHS Tamsulosin Hcl 0.4 Mg Cap.er.24h 0.4 Mg PO QHS Lisinopril 10 Mg Tablet 10 Mg PO DAILY Aspirin 325 Mg Tablet 325 Mg PO DAILY Vitals/I & O Vital Sign - Last 24 Hours 07/16/18 07/16/18 07/16/18 07/16/18 09:50 11:03 13:22 17:02 Temp 97.7 Pulse 105 105 103 Resp 20 B/P (MAP) 113/70 (84) 97/68 (78) 109/74 (86) Pulse Ox 95 95 96 O2 Delivery Room Air Room Air Nasal Cannula O2 Flow Rate 2.0 2.0 07/16/18 07/16/18 07/16/18 07/16/18 18:06 18:14 19:00 20:00 Temp 98.0 Pulse 115 94 Resp 16 B/P (MAP) 104/77 90/50 (63) Pulse Ox 96 96 O2 Delivery Room Air Nasal Cannula Room Air O2 Flow Rate 2.0 2.0 07/16/18 07/16/18 07/16/18 07/16/18 20:00 21:00 21:40 22:00 Pulse 124 80 86 88 Resp 16 16 16 B/P (MAP) 93/73 (80) 111/76 (88) 111/76 117/76 (90) Pulse Ox 99 97 97 O2 Delivery Nasal Cannula Nasal Cannula Nasal Cannula O2 Flow Rate 2.0 2.0 2.0 07/16/18 07/17/18 07/17/18 07/17/18 23:00 00:00 01:00 02:00 Pulse 88 88 102 82 Resp 16 16 18 18 B/P (MAP) 112/75 (87) 115/74 (88) 111/73 (86) 125/76 (92) Pulse Ox 97 99 99 99 O2 Delivery Nasal Cannula Nasal Cannula Nasal Cannula Nasal Cannula O2 Flow Rate 2.0 2.0 2.0 2.0 07/17/18 07/17/18 07/17/18 07/17/18 03:00 04:00 05:00 05:26 Pulse 98 94 94 Resp 18 18 18 18 B/P (MAP) 125/84 (98) 132/92 (105) 145/85 (105) Pulse Ox 99 99 99 98 O2 Delivery Nasal Cannula Nasal Cannula Nasal Cannula Room Air O2 Flow Rate 2.0 2.0 2.0 07/17/18 07/17/18 06:26 07:51 Temp 98.2 Pulse 73 Resp 18 18 B/P (MAP) 108/77 (87) Pulse Ox 98 95 O2 Delivery Nasal Cannula Nasal Cannula O2 Flow Rate 2.0 2.0 Intake and Output 07/16/18 07/16/18 07/17/18 15:00 23:00 07:00 Intake Total 240 ml 160 ml 1295 ml Balance 240 ml 160 ml 1295 ml 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
[2018-07-17] MEDS ORDERED: BENZONATATE 100 MG CAPSULE. PO PRN (09:30)
[2018-07-17] MEDS: LACTOBACILLUS RHAMNOSUS GG 1 CAPSULE. PO SCH ×2 (09:48→20:29)
[2018-07-17] MEDS: FLECAINIDE 50 MG TABLET. PO SCH ×2 (09:48→20:30)
[2018-07-17] MEDS: predniSONE 20 MG TABLET PO SCH (09:49)
[2018-07-17] MEDS: APIXABAN 5 MG TABLET. PO SCH ×2 (09:49→20:29)
[2018-07-17] MEDS: MAGNESIUM SULFATE 2GM 50 ML IV SCH (09:50)
[2018-07-17 13:02] LABS: FREE T4 1.19 ng/dL (0.76-1.46); THYROID STIM HORMONE (TSH) 2.236 uIU/mL (0.358-3.740)
[2018-07-17] MEDS ORDERED: MAG HYDROX/AL HYDROX/SIMETH 30 ML ORAL.SUSP PO PRN (13:30)
--- NOTE | 2018-07-17 14:39 | PN ---
DATE: 07/17/2018 SUBJECTIVE: The patient is sitting on the edge of the bed, no apparent distress. He continued to complain of cough with scanty whitish sputum. He was started last night on flecainide, diltiazem, and apixaban. Continued to be also on diltiazem drip at 5 mg per hour. PHYSICAL EXAMINATION: GENERAL: When I saw him this morning, his heart rate continued to be slightly elevated 100-110, irregularly irregular, blood pressure was 145/85, temperature was at 98 degree Fahrenheit. His oxygen saturation was 99% on 2 liters of oxygen. HEAD, EYES, EARS, NOSE, AND THROAT: Showed normocephalic, atraumatic. NECK: Supple. HEART: Showed normal first and second heart sounds with no gallop, rub, or murmur. CHEST: Clear to auscultation. No crepitation. I could not really appreciate any crepitation or rhonchi. ABDOMEN: Distended, soft, nontender. No guarding or rigidity. No organomegaly. All hernial orifices intact. Bowel sounds normal. ASSESSMENT: 1. Paroxysmal atrial fibrillation for which he continues to be on ____ Cardizem 120 mg once a day, flecainide 50 mg twice a day. He was also started on apixaban. 2. Chronic obstructive pulmonary disease exacerbation. 3. Possible left lower lobe infiltrate. 4. Hypertension. 5. Status post recent rotator cuff surgery on the right side. The patient's verapamil was discontinued yesterday and changed to Cardizem 120. He was started on Eliquis as well as flecainide. So far, his heart rate is slightly slower although continued to be around 100-110 and irregularly irregular. The plan is to continue with current management as recommended by the training and development assistant and await their final recommendation. KAREN MARQUEZ MD DR: KIERAN/teresa JOB#: [id number] / [id number]
[2018-07-17] MEDS: PANTOPRAZOLE 40 MG TABLET. PO SCH (15:11)
[2018-07-17] MEDS: FINASTERIDE 5 MG TABLET PO SCH (20:29)
[2018-07-17] MEDS: TAMSULOSIN 0.4 MG CAP.ER.24H. PO SCH (20:29)
[2018-07-17] MEDS: ACETAMINOPHEN 325 MG TABLET PO PRN (20:36)
[2018-07-18 01:00] VITALS: BP 156/90
[2018-07-18] MEDS: traMADol 50 MG TABLET PO PRN (01:24)
[2018-07-18 01:47] VITALS: BP 146/86
[2018-07-18 05:37] VITALS: BP 160/89
[2018-07-18] MEDS: IV NORMAL SALINE 1,000ML 1,000 ML IV SCH (06:13)
[2018-07-18 08:00] VITALS: BP 126/76
[2018-07-18] MEDS: APIXABAN 5 MG TABLET. PO SCH (08:38)
[2018-07-18] MEDS: LACTOBACILLUS RHAMNOSUS GG 1 CAPSULE. PO SCH (08:38)
[2018-07-18] MEDS: FLECAINIDE 50 MG TABLET. PO SCH (08:38)
[2018-07-18] MEDS: PANTOPRAZOLE 40 MG TABLET. PO SCH (08:39)
[2018-07-18] MEDS: predniSONE 20 MG TABLET PO SCH (08:39)
[2018-07-18] MEDS: MAGNESIUM SULFATE 2GM 50 ML IV SCH (09:00)
--- NOTE | 2018-07-18 09:34 | PDOC ---
PROGRESS NOTES Diagnosis Problem Problems Medical Problems: (1) Chest pain Status: Acute (2) Viral syndrome Status: Acute Assessment Problems Medical Problems: (1) Chest pain Status: Acute (2) Viral syndrome Status: Acute 1. atrial fibrillation - Required IV cardizem during the night. Now sinus rhythm. Increase flecanide dosing to maintain. Continue oral cardizem. On Eliquis for stroke prophylaxis. MCT on discharge for AF burden. 2. Chest pain - non cardiac chest pain. Normal LVEF and wall motion by echo. Luís neg. continue aspirin. Lipids WNL. 3. Acute bronchitis - mgmt per PCP 4. Hypertension - controlled. 5. s/p recent rotator cuff surgery - mgmt per PCP 6. edema - suggest Compression hose. may need to change cardizem to beta liat if edema continues. avoid sodium and elevate feet when at rest. Subjective "ready to go home", no chest pain, cough improved, no lightheadedness, no palpitations. does not want to go back to rehab, would prefer home. Objective Vital Signs Date Time Temp Pulse Resp B/P (MAP) Pulse Ox O2 Delivery O2 Flow Rate FiO2 07/18/18 08:54 Room Air 07/18/18 08:39 61 160/89 07/18/18 05:37 22 98 07/18/18 01:00 2.0 07/17/18 19:45 98.3 Intake and Output 07/18/18 07:00 Intake Total 4252 ml Balance 4252 ml Intake Oral 1930 ml IV Total 2322 ml # Voids 6 # Bowel Movements 4 Physical Exam Gen: awake, alert, oriented, no acute distress CV : regular rate and rhythm, no gallops, clicks or rubs Lungs: coarse without crackles, rhonchi or wheeze abd: soft, nontender, bowel sounds present ext: 1+edema Review of Relevant I have reviewed the following items garrick (where applicable) has been applied. Labs Laboratory Tests Test 07/16/18 12:19 07/17/18 05:50 Creatine Kinase 149 U/L (39-308) Troponin I Quantitative < 0.017 ng/mL (0-0.055) Thyroid Stimulating Hormone (TSH) 2.236 uIU/mL (0.358-3.740) Free Thyroxine 1.19 ng/dL (0.76-1.46) Thyroxine (T4) 6.0 ug/dL (4.5-12.0) Total Triiodothyronine 50 ng/dL (71-180) Sodium Level 136 mmol/L (136-145) Potassium Level 4.2 mmol/L (3.5-5.1) Chloride Level 103 mmol/L (98-107) Carbon Dioxide Level 23 mmol/L (21-32) Anion Gap 10 (6-14) Blood Urea Nitrogen 26 mg/dL (8-26) Creatinine 1.1 mg/dL (0.7-1.3) Estimated GFR (Cockcroft-Gault) 65.6 Glucose Level 126 mg/dL (70-99) Calcium Level 8.3 mg/dL (8.5-10.1) Magnesium Level 2.1 mg/dL (1.8-2.4) Microbiology 07/11/18 Blood Culture - Final, Complete NO GROWTH AFTER 5 DAYS... 07/11/18 Throat Screen - Final, Complete 07/11/18 Throat Culture - Final, Complete Medications Current Medications Sodium Chloride 1,000 ml @ 1,000 mls/hr 1X ONCE IV Last administered on at 15:25; Start 07/11/18 at 15:30; Stop 07/11/18 at 16:29; Status DC Ondansetron HCl (Zofran) 4 mg 1X ONCE IV Last administered on 07/11/18at 16:24; Start 07/11/18 at 15:30; Stop 07/11/18 at 15:51; Status DC Ondansetron HCl (Zofran) 4 mg STK-MED ONCE .ROUTE ; Start 07/11/18 at 15:18; Stop 07/11/18 at 15:19; Status DC Acetaminophen/ Hydrocodone Bitart (Lortab 5/325) 1 tab 1X ONCE PO ; Start at 16:45; Stop 07/11/18 at 16:45; Status DC Acetaminophen/ Hydrocodone Bitart (Lortab 10/325) 1 tab 1X ONCE PO Last administered on 07/11/18at 16:39; Start 07/11/18 at 17:00; Stop 07/11/18 at 17:01; Status DC Methylprednisolone Sodium Succinate (SOLU-Medrol 125MG VIAL) 125 mg 1X ONCE IV Last administered on 07/11/18at 17:22; Start 07/11/18 at 17:30; Stop 07/11/18 at 17:31; Status DC Aspirin (Jaelyn Aspirin) 325 mg DAILY PO Last administered on 07/16/18 08:24; Start 07/12/18 at 09:00; Stop 07/16/18 at 17:36; Status DC Lisinopril (Prinivil) 10 mg DAILY PO Last administered on 07/13/18 07:25; Start 07/12/18 at 09:00; Stop 07/13/18 at 12:43; Status DC Tamsulosin HCl (Flomax) 0.4 mg QHS PO Last administered on 07/17/18 20:29; Start 07/12/18 at 21:00 Tramadol HCl (Ultram) 50 mg PRN Q6HRS PRN PO PAIN Last administered on 01:24; Start 07/12/18 at 00:15 Non-Formulary Medication (Budesonide/ Formoterol Fumarate (Symbicort 160-4.5 Mcg Inhaler)) 2 puff BID IH ; Start 07/12/18 at 09:00; Status UNV Finasteride (Proscar) 5 mg QHS PO Last administered on 07/17/18 20:29; Start 07/12/18 at 21:00 Budesonide (Pulmicort) 0.5 mg RTBID NEB Last administered on 07/12/18 19:59; Start 07/12/18 at 08:00; Stop 07/13/18 at 06:58; Status DC Albuterol Sulfate (Ventolin) 2.5 mg RTQID NEB Last administered on 07/12/18 15: 26; Start 07/12/18 at 08:00; Stop 07/12/18 at 22:13; Status DC Albuterol/ Ipratropium (Duoneb) 3 ml STK-MED ONCE .ROUTE Last administered on 05:37; Start 07/12/18 at 05:06; Stop 07/12/18 at 05:07; Status DC Morphine Sulfate (Morphine 4mg Syringe) 4 mg 1X ONCE IV Last administered on 06:34; Start 07/12/18 at 07:00; Stop 07/12/18 at 07:01; Status DC Sodium Chloride 1,000 ml @ 1,000 mls/hr 1X ONCE IV Last administered on at 09:36; Start 07/12/18 at 07:30; Stop 07/12/18 at 08:29; Status DC Sodium Chloride 500 ml @ 0 mls/hr 1X ONCE IV ; Start 07/12/18 at 07:45; Stop 07/12/18 at 07:47; Status DC Sodium Chloride 1,000 ml @ 100 mls/hr Q10H IV Last administered on 07/18/18at 06:13; Start 07/12/18 at 07:45; Stop 07/18/18 at 07:06; Status DC Magnesium Oxide (Magnesium Oxide) 400 mg BID PO Last administered on 07/12/18at 13:58; Start 07/12/18 at 12:00; Stop 07/12/18 at 12:01; Status DC Metoprolol Tartrate (Lopressor) 25 mg BID PO Last administered on 07/13/18at 07: 25; Start 07/12/18 at 12:00; Stop 07/13/18 at 12:43; Status DC Levofloxacin/ Dextrose 100 ml @ 100 mls/hr 1X ONCE IV Last administered on 07/12/18at 17:51; Start 07/12/18 at 18:00; Stop 07/12/18 at 18:59; Status DC Levofloxacin/ Dextrose 50 ml @ 50 mls/hr Q24H IV Last administered on at 17:25; Start 07/13/18 at 18:00; Stop 07/18/18 at 07:06; Status DC Methylprednisolone Sodium Succinate (SOLU-Medrol 40MG VIAL) 40 mg Q8HRS IV Last administered on 07/15/18at 05:21; Start 07/12/18 at 22:00; Stop 07/15/18 at 11: 31; Status DC Albuterol/ Ipratropium (Duoneb) 3 ml RTQID NEB Last administered on 07/13/18at 05 :31; Start 07/12/18 at 20:00; Stop 07/13/18 at 06:58; Status DC Enoxaparin Sodium (Lovenox 40mg Syringe) 40 mg Q24H SQ Last administered on 07/15at 18:00; Start 07/12/18 at 17:30; Stop 07/16/18 at 17:39; Status DC Lactobacillus Rhamnosus (Culturelle) 1 cap BID PO Last administered on at 08:38; Start 07/12/18 at 21:00 Albuterol Sulfate (Ventolin) 2.5 mg PRN QID PRN NEB SHORTNESS OF BREATH Last administered on 07/13/18 20:31; Start 07/13/18 at 08:00 Acetaminophen (Tylenol) 650 mg PRN Q6HRS PRN PO PAIN / TEMP Last administered on 07/17/18at 20:36; Start 07/13/18 at 06:00 Budesonide (Pulmicort) 0.5 mg PRN BID PRN NEB SHORTNESS OF BREATH Last administered on 07/13/18 20:31; Start 07/13/18 at 07:00 Albuterol/ Ipratropium (Duoneb) 3 ml PRN QID PRN NEB SHORTNESS OF BREATH Last administered on 07/15/18at 10:51; Start 07/13/18 at 07:00 Lisinopril (Prinivil) 5 mg DAILY PO ; Start 07/14/18 at 09:00; Stop 07/14/18 at 09 :00; Status DC Metoprolol Tartrate (Lopressor) 50 mg BID PO ; Start 07/13/18 at 21:00; Stop 07/13 at 21:00; Status DC Verapamil HCl (Calan) 40 mg TID PO Last administered on 07/16/18at 08:24; Start 07/13/18 at 13:00; Stop 07/16/18 at 17:36; Status DC Diltiazem HCl 125 mg/Dextrose 125 ml @ 5 mls/hr PRN 1X PRN IV SEE I/O RECORD Last administered on 07/17/18 22:17; Start 07/13/18 at 18:45 Methylprednisolone Sodium Succinate (SOLU-Medrol 40MG VIAL) 40 mg Q12H IV Last administered on 07/17/18at 05:25; Start 07/15/18 at 18:00; Stop 07/17/18 at 06:57 ; Status DC Diltiazem HCl (Cardizem Iv Push) 25 mg 1X ONCE IVP Last administered on at 03:10; Start 07/15/18 at 13:45; Stop 07/15/18 at 13:46; Status DC Diltiazem HCl (Cardizem) 125 mg STK-MED ONCE IV ; Start 07/16/18 at 04:03; Stop 07/16/18 at 04:04; Status DC Throat Lozenges (Cepacol Sore Throat Lozenge) 1 carl PRN Q2HR PRN PO SORE THROAT Last administered on 07/16/18at 05:35; Start 07/16/18 at 05:30 Magnesium Sulfate 50 ml @ 50 mls/hr DAILY IV Last administered on 07/17/18at 09: 50; Start 07/16/18 at 09:00; Stop 07/19/18 at 08:59 Iohexol (Omnipaque 350 Mg/ml) 100 ml 1X ONCE IV Last administered on at 07:52; Start 07/16/18 at 07:00; Stop 07/16/18 at 07:01; Status DC Info (Do NOT chart on this entry -- for MONITORING) 1 each PRN DAILY PRN MC SEE COMMENTS; Start 07/16/18 at 07:00; Stop 07/18/18 at 06:59; Status DC Diltiazem HCl (Cardizem 24hr Cd) 120 mg 1X ONCE PO Last administered on at 18:06; Start 07/16/18 at 17:45; Stop 07/16/18 at 17:46; Status DC Diltiazem HCl (Cardizem 24hr Cd) 120 mg DAILY PO Last administered on at 08:39; Start 07/17/18 at 09:00 Apixaban (Eliquis) 5 mg BID PO Last administered on 07/18/18at 08:38; Start 02/24 at 21:00 Flecainide Acetate (Tambocor) 50 mg Q12HR PO Last administered on 07/18/18at 08: 38; Start 07/16/18 at 21:00 Prednisone (Prednisone) 40 mg DAILY PO Last administered on 07/18/18at 08:39; Start 07/17/18 at 09:00 Benzonatate (Tessalon Perle) 100 mg [id number] PRN PO cough Last administered on 03/27at 09:48; Start 07/17/18 at 09:30 Al Hydroxide/Mg Hydroxide (Mylanta Plus Xs) 15 ml Q4HRS PRN PO DYSPEPSIA Last administered on 07/17/18at 15:11; Start 07/17/18 at 13:30 Pantoprazole Sodium (Protonix) 40 mg DAILYAC PO Last administered on 07/18/18at 08:39; Start 07/17/18 at 13:30 Levofloxacin (Levaquin) 500 mg DAILY16 PO ; Start 07/18/18 at 16:00 Active Scripts Active Reported Symbicort 160-4.5 Mcg Inhaler (Budesonide/Formoterol Fumarate) 10.2 Gm Hfa.aer.ad 2 Puff IH BID Tramadol Hcl (Tramadol HCl) 50 Mg Tablet 50 Mg PO PRN Q6HRS PRN Finasteride 5 Mg Tablet 5 Mg PO QHS Tamsulosin Hcl 0.4 Mg Cap.er.24h 0.4 Mg PO QHS Lisinopril 10 Mg Tablet 10 Mg PO DAILY Aspirin 325 Mg Tablet 325 Mg PO DAILY Vitals/I & O Vital Sign - Last 24 Hours 07/17/18 07/17/18 07/17/18 07/17/18 09:48 09:49 12:09 16:17 Temp 97.8 Pulse 125 100 127 123 Resp 20 20 B/P (MAP) 105/66 105/66 107/80 (89) 143/83 (103) Pulse Ox 96 O2 Delivery Room Air Nasal Cannula O2 Flow Rate 2.0 2.0 07/17/18 07/17/18 07/17/18 07/17/18 16:31 17:25 19:35 19:45 Temp 98.3 Pulse 106 Resp 15 20 B/P (MAP) 140/86 (104) Pulse Ox 97 97 97 O2 Delivery Room Air Room Air Nasal Cannula Nasal Cannula O2 Flow Rate 1.0 2.0 2.0 2.0 07/17/18 07/17/18 07/17/18 07/17/18 20:30 20:45 21:45 22:45 Pulse 93 98 96 96 Resp 20 20 20 B/P (MAP) 140/86 155/81 (105) 135/92 (106) 138/95 (109) Pulse Ox 97 96 98 O2 Delivery Nasal Cannula Nasal Cannula Nasal Cannula O2 Flow Rate 2.0 2.0 2.0 07/18/18 07/18/18 07/18/18 07/18/18 01:00 01:47 05:37 08:38 Pulse 102 104 61 61 Resp 20 20 22 B/P (MAP) 156/90 (112) 146/86 (106) 160/89 (112) 160/89 Pulse Ox 98 96 98 O2 Delivery Nasal Cannula O2 Flow Rate 2.0 07/18/18 07/18/18 08:39 08:54 Pulse 61 B/P (MAP) 160/89 O2 Delivery Room Air Intake and Output 07/17/18 07/17/18 07/18/18 15:00 23:00 07:00 Intake Total 812 ml 2900 ml 540 ml Balance 812 ml 2900 ml 540 ml MARGIE NORIEGA APRN Jul 18, 2018 09:34
[2018-07-18 09:37] VITALS: BP 132/75
--- NOTE | 2018-07-18 12:01 | EKG ---
[address] [address] Test Date: 2018-07-12 Test Time: 21:16:00 Pat Name: JAMES TONY Department: Room: [facility]06 1 Gender: Crop Specialist: : 1945 Requested By: KAREN MARQUEZ Order Number: [id number] Reading MD: Kimo López MD Measurements Intervals [place] Rate: P: [place]: QRS: QRSD: T: QT: QTc: Interpretive Statements sr Electronically Signed On 07-27-2018 9:19:13 CDT by Kimo López MD
--- NOTE | 2018-07-18 12:02 | EKG ---
[address] [address] Test Date: 2018-07-13 Test Time: 12:37:58 Pat Name: JAMES TONY Department: Room: ICU06 1 Gender: Grill Attendant: : 1945 Requested By: KAREN MARQUEZ Order Number: [id number] Reading MD: Kimo López MD Measurements Intervals [place] Rate: P: MA: QRS: QRSD: T: QT: QTc: Interpretive Statements SUPRAVENTRICULAR TACHYCARDIA PROBABLE AFIB Electronically Signed On 07-27-2018 9:19:34 CDT by Kimo López MD
--- NOTE | 2018-07-18 12:11 | EKG ---
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
[2018-07-18] MEDS ORDERED: FLEC100T PO (12:29)
[2018-07-18] MEDS ORDERED: APIX5TAB3 PO (12:29)
[2018-07-18] MEDS ORDERED: DILT120C85 PO (12:30)
--- NOTE | 2018-07-18 12:59 | PN ---
DATE: 07/18/2018 SUBJECTIVE: The patient is resting, slightly propped up, sleeping comfortably, in no apparent distress, nursing staff says that his heart rate was around 100 throughout the night and she sees now the heart rate dropped down to the 60s and she discontinued his Cardizem drip. PHYSICAL EXAMINATION: GENERAL: When I examined him, he was resting, slightly propped up, in no apparent respiratory distress. No pallor, jaundice, cyanosis, or thyromegaly. No jugular venous distension. No limb edema. VITAL SIGNS: His heart rate was 61, blood pressure 160/89, temperature was 98, respiratory rate was 22 and oxygen saturation was 98% on 2 liters oxygen by nasal cannula. HEAD, EYES, EARS, NOSE AND THROAT: Showed normocephalic, atraumatic. NECK: Supple. HEART: Normal first and second sounds. No gallop, rub or murmur. CHEST: Clear to auscultation. No crepitation or rhonchi. ABDOMEN: Distended, soft, nontender. NEUROLOGIC: He was sleepy, but arousable looking intact. He moves left upper and both lower extremities without difficulty. His right upper extremity is in a shoulder immobilizer after recent surgery on his right shoulder. His intake was 1700, no output was recorded. LABORATORY DATA: As of yesterday showed a serum sodium 136, potassium 4.2, chloride 103, bicarbonate 23, anion gap of 10, BUN 26, creatinine 1.1, estimated GFR was 66 mL per minute, his glucose 126, calcium 8.3, magnesium was 2.1. His TSH was 2.236, 1.19 free T4, total T4 was 6 and total T3 was 50. His most recent white cell count was 11,700, hemoglobin 12, hematocrit 35, MCV 95, and platelet count 391,000. ASSESSMENT: 1. Paroxysmal atrial fibrillation for which he continues to be on Cardizem 120 mg once a day, flecainide 50 mg twice a day. He is also on apixaban 5 mg twice a day and he was on Cardizem drip that was discontinued early this morning. 2. Chronic obstructive pulmonary disease exacerbation. 3. Possible left lower lobe infiltrate. 4. Hypertension. 5. Acute kidney injury, resolved. His creatinine came down from 1.8-1.16. He is status post recent rotator cuff surgery on the right side. PLAN: To continue with his current medication. If his heart rate remained stable, he could be discharged home; however, throughout the night, last night, his heart rate was around 100. KAREN MARQUEZ MD DR: KIERAN/teresa JOB#: [id number] / [id number]
--- NOTE | 2018-07-18 14:17 | DS ---
DATE OF DISCHARGE: 07/18/2018 HOSPITAL COURSE: The patient is a 72-year-old male patient, who was admitted originally with chest pain. He was residing at [facility] re[facility], where after he underwent right reverse total shoulder arthroplasty for advanced rotator cuff tear and arthropathy, he apparently has been complaining of shortness of breath, cough, fever, chills for a few days. On arrival, his temperature was 102 degrees Fahrenheit. He also complained of chest pain that has been occurring with cough. He denied any prior history of chest pain, dyspnea. Denied any congestive symptoms, palpitation, lightheadedness or syncope. He was extensively investigated and has had 3 sets of cardiac enzymes that ruled out myocardial infarction. He was seen in consultation by the accounting clerk and apparently has had multiple episodes of atrial fibrillation/atrial flutter with rapid ventricular response that has failed multiple therapeutic modalities including a Cardizem drip, verapamil 40 mg 3 times a day. Eventually, he was started on Cardizem drip, oral Cardizem as well as flecainide and apixaban and eventually his heart rate was well controlled, and his flecainide was increased to 100 mg twice a day, Cardizem 120 mg once a day and apixaban 5 mg twice a day. He has had cough with possible left lower lobe infiltrate for which we started him on Levaquin. He was also continued on bronchodilator and a tapering course of steroids. He did extremely well and a decision was made to discharge him home to complete the antibiotic and tapering course of steroids and continue with all medication to control the heart rate and for stroke prevention. PHYSICAL EXAMINATION: GENERAL: When I saw him this afternoon, he was sitting on the edge of the bed comfortably, in no apparent respiratory distress. No pallor, jaundice, cyanosis, or thyromegaly. No jugular venous distension. No lower limb edema. VITAL SIGNS: His heart rate was 80, blood pressure was 132/75, temperature was 98.4, respiratory rate 22, and oxygen saturation was 95% on room air. HEAD, EYES, EARS, NOSE AND THROAT: Normocephalic, atraumatic. NECK: Supple. HEART: Showed normal first and second heart sounds. No gallop, rub or murmur. CHEST: Clear to auscultation. No crepitation or rhonchi. ABDOMEN: Distended, soft, nontender. No guarding or rigidity. No organomegaly. Hernial orifice intact. Bowel sounds normal. NEUROLOGIC: He was awake, alert, and responding appropriately. He moves all extremities without difficulty except his right upper extremity is in a shoulder immobilizer. His intake over the last 24 hours was 1700, no output was recorded. LABORATORY DATA: His lab work as of this morning showed a white cell count of 11,700, hemoglobin 12, hematocrit 35, MCV 95, and a platelet count of 391,000. His chemistry showed a serum sodium 136, potassium 4.2, chloride 103, bicarbonate 23, anion gap of 10, BUN 26, creatinine was 1.1, estimated GFR was 66 mL per minute. His glucose was 126, calcium was 8.3, magnesium was 2.1. His TSH, total T4 and free T4 are all within normal range. His D-dimer was high at 0.99, however, CT angio of the chest was negative for pulmonary emboli. His influenza A and B were negative. DISCHARGE MEDICATIONS: He was discharged home to continue on flecainide 100 mg twice a day, levofloxacin 500 mg once a day for 3 more days, Protonix 40 mg once a day. He is on prednisone 40 mg in a tapering fashion, diltiazem 120 mg daily, apixaban 5 mg twice a day. He is on albuterol sulfate and DuoNeb 4 times a day, finasteride 5 mg at bedtime, tamsulosin ____ mg at bedtime and tramadol 50 mg 3 times a day. FINAL DISCHARGE DIAGNOSES: 1. Paroxysmal atrial fibrillation for which he is now on Cardizem CD 120 mg once a day, flecainide 100 mg twice a day as well as apixaban 5 mg twice a day for stroke prevention. 2. Chronic obstructive pulmonary disease exacerbation. 3. Possible left lower lobe infiltrate. 4. Hypertension, well controlled. 5. Acute kidney injury, resolved. His serum creatinine came down from 1.8 to 1.1. 6. Other medical problems include benign prostatic hypertrophy, for which she is on Flomax and finasteride. KAREN MARQUEZ MD DR: KIERAN/teresa JOB#: [id number] / [id number]
[2018-07-18] MEDS ORDERED: levoFLOXacin 500 MG TABLET PO SCH (16:00)
[2018-07-18] MEDS ORDERED: FLECAINIDE 50 MG TABLET. PO SCH (21:00)
--- NOTE | 2018-07-20 12:40 | EKG ---
[address] [address] Test Date: 2018-07-18 Test Time: 10:02:35 Pat Name: JAMES TONY Department: Room: [facility]06 1 Gender: M Master Printer: : 1945 Requested By: MARGIE NORIEGA Order Number: [id number] Reading MD: Kimo López MD Measurements Intervals [place] Rate: 77 P: 14 ME: 148 QRS: 28 QRSD: 88 T: 16 QT: 354 QTc: 402 Interpretive Statements SINUS RHYTHM NON-SPECIFIC ST/T CHANGES Electronically Signed On 07-27-2018 9:26:27 CDT by Kimo López MD
--- NOTE | 2018-08-07 11:12 | EKG ---
[address] [address] Test Date: 2018-07-16 Test Time: 07:31:03 Pat Name: JAMES TONY Department: Room: [facility]06 1 Gender: Operator Maintainer: : 1945 Requested By: KAREN MARQUEZ Order Number: [id number] Reading MD: Kimo López MD Measurements Intervals [place] Rate: P: GA: QRS: QRSD: T: QT: QTc: Interpretive Statements PROBABLE ATRIAL FIBRILLATION NON-SPECIFIC ST/T CHANGES Electronically Signed On 08-07-2018 14:05:34 CDT by Kimo López MD
--- NOTE | 2018-08-07 11:13 | EKG ---
[address] [address] Test Date: 2018-07-16 Test Time: 01:55:08 Pat Name: JAMES TONY Department: Room: [facility]06 1 Gender: Supervisor Firearms: : 1945 Requested By: KAREN MARQUEZ Order Number: [id number] Reading MD: Kimo López MD Measurements Intervals [place] Rate: P: [place]: QRS: QRSD: T: QT: QTc: Interpretive Statements SR PAC'S MISSING LEADS Electronically Signed On 08-07-2018 14:04:18 CDT by Kimo López MD
--- NOTE | 2018-08-07 11:14 | EKG ---
[address] [address] Test Date: 2018-07-16 Test Time: 02:07:27 Pat Name: JAMES TONY Department: Room: [facility]06 1 Gender: Biologics Specialist: : 1945 Requested By: KAREN MARQUEZ Order Number: [id number] Reading MD: Kimo López MD Measurements Intervals [place] Rate: P: ID: QRS: QRSD: T: QT: QTc: Interpretive Statements SVT CANNOT RULE OUT AFIB NON-SPECIFIC ST/T CHANGES Electronically Signed On 08-07-2018 14:05:16 CDT by Kimo López MD
== END 2018-07-18 13:05 | disposition home health service (06) | DRG 865 ==
LOC: ER 15:03 → 1 SOUTH 17:30 → ICU 07-13 15:30 → 1 SOUTH 07-14 17:21 → ICU 07-16 06:59
PROVIDERS: ADMIT Internal Medicine; ATTEND Internal Medicine
DX: B34.9 Viral infection, unspecified (principal); N17.0 Acute kidney failure with tubular necrosis; J44.0 Chronic obstructive pulmonary disease with (acute) lower respiratory infection; I47.1 Supraventricular tachycardia; J44.1 Chronic obstructive pulmonary disease with (acute) exacerbation; E87.1 Hypo-osmolality and hyponatremia; R65.10 Systemic inflammatory response syndrome (SIRS) of non-infectious origin without acute organ dysfunction; J20.9 Acute bronchitis, unspecified; R07.89 Other chest pain; I48.0 Paroxysmal atrial fibrillation; E78.5 Hyperlipidemia, unspecified; E87.6 Hypokalemia; G43.909 Migraine, unspecified, not intractable, without status migrainosus; G62.9 Polyneuropathy, unspecified; H26.9 Unspecified cataract; H90.5 Unspecified sensorineural hearing loss; I10 Essential (primary) hypertension; K21.9 Gastro-esophageal reflux disease without esophagitis; Z96.611 Presence of right artificial shoulder joint; Z96.651 Presence of right artificial knee joint; M19.90 Unspecified osteoarthritis, unspecified site; M75.100 Unspecified rotator cuff tear or rupture of unspecified shoulder, not specified as traumatic; N40.0 Benign prostatic hyperplasia without lower urinary tract symptoms; Z79.01 Long term (current) use of anticoagulants; Z82.49 Family history of ischemic heart disease and other diseases of the circulatory system; Z87.891 Personal history of nicotine dependence; Z82.5 Family history of asthma and other chronic lower respiratory diseases; Z99.81 Dependence on supplemental oxygen
CPT/HCPCS: 36415; 71045; 71046; 71275; 80048; 80053; 80061; 82550; 83735; 83880; 84436; 84439; 84443; 84480; 84484; 85007; 85025; 85027; 85379; 87040; 87070; 87641; 87804; 87880; 93005; 93306; 94640; 96361; 96374; 96375; J1650; J1956; J2270; J2405; J2920; J2930; J3475; J3490; J7512; J7613; J7620; J7626; Q9967; 99285-25; J7030

== ENCOUNTER → 2018-08-15 | Outpatient (CLI) | payer MEDICARE ==
[2018-07-18 09:37] VITALS: BP 132/75
[~2018-08-15] MED LIST: APIX5TAB3 PO; ASPI325T8 PO; BUDE10.2 IH; DILT120C85 PO; FINA5TAB4 PO; FLEC100T PO; LISI10TA2 PO; TAMS0.4C2 PO; TRAM50TA PO
[2018-08-15 16:18] LABS: CALCIUM 9.2 mg/dL (8.5-10.1); CREATININE 2.1 mg/dL (0.7-1.3); GFR 31.1; POTASSIUM 4.7 mmol/L (3.5-5.1)
== END | disposition home or self-care (01) ==
LOC: LAB 15:39
PROVIDERS: ATTEND Family Medicine
DX: R42 Dizziness and giddiness (principal)
CPT/HCPCS: 36415; 80048; 85018

== ENCOUNTER → 2019-04-26 | Outpatient (CLI) | payer MEDICARE ==
[~2019-04-26] MED LIST changes: -DILT120C85 PO; +DILT120C99 PO
--- NOTE | 2019-04-26 11:05 | CARD ---
MR#: [id number] Date of Study: 04/26/2019 Ordering Physician: WALLY BASS, Referring Physician: WALLY BASS, Tech: Christa Barnett CHIDI APPROVED REPORT EXAM: Two-dimensional and M-mode echocardiogram with Doppler and color Doppler. Other Information Quality : Good INDICATION Paroxysmal Atrial Fibrillation 2D DIMENSIONS RVDd2.1 (2.9-3.5cm)Left Atrium(2D)3.3 (1.6-4.0cm) IVSd0.9 (0.7-1.1cm)Aortic Root(2D)3.8 (2.0-3.7cm) LVDd4.8 (3.9-5.9cm)LVOT Diameter2.3 (1.8-2.4cm) PWd0.9 (0.7-1.1cm)LVDs2.9 (2.5-4.0cm) FS (%) 39.5 %SV74.3 ml LVEF(%)60.0 (>50%) Aortic Valve AoV Peak Yoel.151.6cm/sAoV VTI27.9cm AO Peak GR.9.2mmHgLVOT Peak Yoel.121.0cm/s LVOT VTI 22.98cmAO Mean GR.5mmHg ELLIOT (VMAX)3.02zh6LEC (VTI)3.29cm2 Mitral Valve MV E Vjinqqsb59.4cm/sMV DECEL HHYS455fs MV A Tfltraoy62.5cm/sE/A Ratio0.9 Tricuspid Valve TR P. Ghafxhre186em/sRAP NONYZPGW9shNp TR Peak Gr.99tdBeBPAO04twEo Pulmonary Vein S1 Igtfseio77.6cm/sD2 Jthpuwhv86.3cm/s LEFT VENTRICLE The left ventricle is normal size. There is normal left ventricular wall thickness. The left ventricu lar systolic function is normal. The Ejection Fraction is 55-60%. There is normal LV segmental wall m otion. Transmitral Doppler flow pattern is Grade I-abnormal relaxation pattern. RIGHT VENTRICLE The right ventricle is normal size. The right ventricular systolic function is normal. ATRIA The left atrium size is normal. The right atrium size is normal. The interatrial septum is intact wit h no evidence for an atrial septal defect or patent foramen ovale as noted on 2-D or Doppler imaging. AORTIC VALVE The aortic valve is calcified but opens well. Doppler and Color Flow revealed mild eccentric aortic r egurgitation. There is no significant aortic valvular stenosis. MITRAL VALVE The mitral valve is calcified but opens well. Mitral annular calcification is mild. There is no evide nce of mitral valve prolapse. There is no mitral valve stenosis. Doppler and Color-flow revealed trac e to mild mitral regurgitation. TRICUSPID VALVE The tricuspid valve is normal in structure and function. Doppler and Color Flow revealed trace tricus pid regurgitation. There is mild pulmonary hypertension. The PA pressure was estimated at 32 mmHg. Th ere is no tricuspid valve stenosis. PULMONIC VALVE The pulmonic valve is not well visualized. Doppler and Color Flow revealed no pulmonic valvular regur gitation. There is no pulmonic valvular stenosis. GREAT VESSELS The aortic root is normal in size. The ascending aorta is mildly dilated at 3.8 cm. The IVC is normal in size and collapses >50% with inspiration. PERICARDIAL EFFUSION There is no evidence of significant pericardial effusion. Critical Notification Critical Value: No <Conclusion> The left ventricular systolic function is normal. The Ejection Fraction is 55-60%. There is normal LV segmental wall motion. Transmitral Doppler flow pattern is Grade I-abnormal relaxation pattern. Mild eccentric aortic regurgitation. Trace to mild mitral regurgitation. The PA pressure was estimated at 32 mmHg. There is no evidence of significant pericardial effusion. Signed by : Dewey Horowitz, Electronically Approved : 04/26/2019 11:05:37
== END | disposition home or self-care (01) ==
LOC: ECHO 08:35
PROVIDERS: ATTEND Internal Medicine Cardiovascular Disease
DX: I08.0 Rheumatic disorders of both mitral and aortic valves (principal); I27.20 Pulmonary hypertension, unspecified
CPT/HCPCS: 93306

== ENCOUNTER → 2019-06-15 | Day surgery (SDC) | payer MEDICARE ==
[~2019-06-15] MED LIST changes: +ALBUTEROL SULFATE 2.5 MG/3 ML NEBU. NEB PRN; +ATOR20TA58 PO; +ATROPINE 0.5 MG/5 ML DISP.SYRIN. IV PRN; +IV RINGERS SOLUTION,LACTATED 1,000 ML IV SCH; +LIDOCAINE 2% PF Vial for OR 5 ML VIAL. ONE; +LISI-338 PO; +MOME13HF IH; +NALOXONE 0.4 MG/ML VIAL. IV PRN; +ONDANSETRON PF 4 MG/2 ML VIAL. IV PRN; +POLY17PO5 PO; +PROPOFOL 60 ML IV ONE; +diphenhydrAMINE 50 MG/ML VIAL IV PRN
[2019-06-15 12:21] VITALS: BP 122/72
--- NOTE | 2019-06-18 15:55 | PATHOLOGY ---
[facility] Accession Number: [id number] . 01 Material submitted: . PART A: stomach - ANTRUM GASTRITIS PART B: esophagus - DISTAL ESOPHAGUS. Modifiers: distal . 01 Clinical history: . Heartburn . 02 Diagnosis: A. Gastric biopsies, antrum: - Active chronic gastritis, moderate, with Helicobacter organisms identified. . B. Esophageal biopsy, distal esophagus: - Reflux esophagitis. LBQ 06/18/2019 0942 Local . 02 Comment: Sections of the gastric antral biopsy show congestion and moderate active chronic inflammation. A properly controlled immunoperoxidase stain for Helicobacter reveals focally prominent numbers of Helicobacter organisms. There is no evidence of malignancy. . Sections of the distal esophageal biopsy reveal a segment of hyperplastic squamous esophageal mucosa showing focal chronic inflammation and attached submucosal glands. The findings are consistent with reflux esophagitis. There is no evidence of Rogers's change, dysplasia, or malignancy. (JPM/db; 06/18/2019) . Special stain: Immunoperoxidase stain for Helicobacter on A1 . 02 Electronically signed: . Benja Chow MD, Pathologist NPI- [id number] . 01 Gross description: . A. The specimen is received in formalin, labeled "Timmy Sher, antrum gastritis". Received are two segments of pale palacio soft tissue ranging in size from 0.2 to 0.3 cm in maximum dimensions. The specimen is submitted entirely in cassette A1. . B. The specimen is received in formalin, labeled "Timmy Sher, distal esophagus". Received is a segment of pale palacio soft tissue measuring 0.3 cm in maximum dimensions. The specimen is submitted entirely in cassette B1. (CAA; 06/15/2019) QAC/QAC 06/15/2019 1708 Local . 02 Pathologist provided ICD-10: K29.50, B96.81, K21.0 . 02 CPT . 264501, 712930, F44259 Specimen Comment: A courtesy copy of this report has been sent to [phone], [phone] Specimen Comment: [id number] Specimen Comment: Report sent to / DR GEE Performed at: 01 [facility] [address] [place] [address] [address], [place] [id number] MD Chaim Rodriguez MD Phone: [phone] Performed at: 02 [facility] [address] [place], [place] [id number] MD Benja Chow MD Phone: [phone]
== END ==
LOC: SURG 09:44
PROVIDERS: ATTEND Internal Medicine Gastroenterology
DX: Z12.11 Encounter for screening for malignant neoplasm of colon (principal); K29.50 Unspecified chronic gastritis without bleeding; K21.0 Gastro-esophageal reflux disease with esophagitis; K64.8 Other hemorrhoids; K64.4 Residual hemorrhoidal skin tags; J44.9 Chronic obstructive pulmonary disease, unspecified; I10 Essential (primary) hypertension; E78.5 Hyperlipidemia, unspecified; M10.9 Gout, unspecified; K21.9 Gastro-esophageal reflux disease without esophagitis; E66.9 Obesity, unspecified; Z68.32 Body mass index [BMI] 32.0-32.9, adult; Z96.651 Presence of right artificial knee joint; Z96.641 Presence of right artificial hip joint; Z96.611 Presence of right artificial shoulder joint; Z86.010 Personal history of colon polyps; Z80.0 Family history of malignant neoplasm of digestive organs
CPT/HCPCS: 43239; 88305; 88342; G0105; J2704; J7120; J7613; 45380; J2001

== ENCOUNTER → 2020-05-06 | Outpatient (CLI) | payer MEDICARE ==
[2019-06-15 12:21] VITALS: BP 122/72
[~2020-05-06] MED LIST changes: -ALBUTEROL SULFATE 2.5 MG/3 ML NEBU. NEB PRN; -ATROPINE 0.5 MG/5 ML DISP.SYRIN. IV PRN; -IV RINGERS SOLUTION,LACTATED 1,000 ML IV SCH; -LIDOCAINE 2% PF Vial for OR 5 ML VIAL. ONE; -NALOXONE 0.4 MG/ML VIAL. IV PRN; -ONDANSETRON PF 4 MG/2 ML VIAL. IV PRN; -PROPOFOL 60 ML IV ONE; -diphenhydrAMINE 50 MG/ML VIAL IV PRN
--- NOTE | 2020-05-06 17:15 | RAD ---
US DPLX ARTR EXTREM LOWER BILAT Indication: Reason: PVD / Spl. Instructions: / History: Comparison: None. Procedure: Arterial pressures are measured in the arms and ankles. Findings: Right ankle: 149 mm Hg. Right arm: 141 mm Hg. Right leg RAMESH: 1.05. Left ankle: 151 mm Hg. Left arm: 141 mm Hg. Left leg RAMESH: 1.09. IMPRESSION: 1. Normal bilateral ankle brachial indices. Electronically signed by: Leighton Solis DO (05/06/2020 5:13 PM) [id number]
== END ==
LOC: US 10:59
PROVIDERS: ATTEND Specialist
DX: I73.9 Peripheral vascular disease, unspecified (principal)
CPT/HCPCS: 93922

== ENCOUNTER → 2020-07-22 | Outpatient (CLI) | payer MEDICARE ==
[2019-06-15 12:21] VITALS: BP 122/72
[~2020-07-22] MED LIST changes: -LISI-338 PO; +LISI-517 PO; +LISI10TA16 PO; -LISI10TA2 PO
[2020-07-22 16:58] LABS: ALBUMIN 3.9 g/dL (3.4-5.0); ALBUMIN/GLOBULIN RATIO 1.4 (1.0-1.7); CALCIUM 9.3 mg/dL (8.5-10.1); CREATININE 1.3 mg/dL (0.7-1.3); GFR 53.8; POTASSIUM 4.2 mmol/L (3.5-5.1); TOTAL BILIRUBIN 0.3 mg/dL (0.2-1.0); TOTAL PROTEIN 6.7 g/dL (6.4-8.2)
== END ==
LOC: LAB 14:48
PROVIDERS: ATTEND Internal Medicine Cardiovascular Disease
DX: I48.91 Unspecified atrial fibrillation (principal); N18.9 Chronic kidney disease, unspecified
CPT/HCPCS: 36415; 80053; 83880

== ENCOUNTER → 2021-06-29 | Outpatient (CLI) | payer MEDICARE ==
[2019-06-15 12:21] VITALS: BP 122/72
[~2021-06-29] MED LIST changes: -LISI-517 PO; +LISI5TAB15 PO
[2021-06-29 10:58] LABS: ALBUMIN 3.9 g/dL (3.4-5.0); ALBUMIN/GLOBULIN RATIO 1.3 (1.0-1.7); CALCIUM 9.6 mg/dL (8.5-10.1); CREATININE 1.4 mg/dL (0.7-1.3); GFR 49.3; POTASSIUM 4.1 mmol/L (3.5-5.1); TOTAL BILIRUBIN 0.3 mg/dL (0.2-1.0); TOTAL PROTEIN 6.9 g/dL (6.4-8.2)
[2021-06-29 13:24] LABS: CHOLESTEROL/HDL RATIO 2.3
== END ==
LOC: LAB 09:46
PROVIDERS: ATTEND Internal Medicine Cardiovascular Disease
DX: I10 Essential (primary) hypertension (principal); E78.5 Hyperlipidemia, unspecified; R06.02 Shortness of breath
CPT/HCPCS: 36415; 80053; 80061; 83880; 85379

== ENCOUNTER → 2021-06-30 | Outpatient (CLI) | payer MEDICARE ==
[2019-06-15 12:21] VITALS: BP 122/72
--- NOTE | 2021-06-30 18:02 | CARD ---
MR#: [id number] Date of Study: 06/30/2021 Ordering Physician: WALLY BASS, Referring Physician: WALLY BASS, Tech: Lyric Ballesteros, [facility] APPROVED REPORT EXAM: Two-dimensional and M-mode echocardiogram with Doppler and color Doppler. Other Information Quality : AverageHR: 112bpm Technically limited study due to body habitus. INDICATION Dyspnea 2D DIMENSIONS Left Atrium(2D)2.9 (1.6-4.0cm)IVSd1.0 (0.7-1.1cm) Aortic Root(2D)4.0 (2.0-3.7cm)LVDd4.5 (3.9-5.9cm) LVOT Diameter2.5 (1.8-2.4cm)PWd1.0 (0.7-1.1cm) LVDs2.6 (2.5-4.0cm)FS (%) 40.9 % SV65.1 mlLVEF(%)71.9 (>50%) Aortic Valve AoV Peak Yoel.148.0cm/sAoV VTI28.3cm AO Peak GR.8.8mmHgLVOT Peak Yoel.103.0cm/s LVOT VTI 19.78cmAO Mean GR.5mmHg ELLIOT (VMAX)3.11nw9MGG (VTI)3.31cm2 Mitral Valve MV E Loviprtj80.1cm/sMV E Peak Gr.3mmHg MV DECEL [id number] A Sfpttjag55.9cm/s MV E Mean Gr.1mmHgE/A Ratio1.0 Pulmonary Valve PV Peak Glsxwyyl55.1cm/sPV Peak Grad.3mmHg Tricuspid Valve TR P. Mpczczoy864us/sRAP MZMHNLZH1pvMp TR Peak Gr.38erBrKZZJ49pmWy LEFT VENTRICLE The left ventricle is normal size. There is normal left ventricular wall thickness. The left ventricu lar systolic function is normal. The Ejection Fraction is 55-60%. There is normal LV segmental wall m otion. Transmitral Doppler flow pattern is Grade I-abnormal relaxation pattern. RIGHT VENTRICLE The right ventricle is normal size. There is normal right ventricular wall thickness. The right ventr icular systolic function is normal. ATRIA The left atrium size is normal. The right atrium size is normal. The interatrial septum is intact wit h no evidence for an atrial septal defect or patent foramen ovale as noted on 2-D or Doppler imaging. AORTIC VALVE The aortic valve is normal in structure and function. Doppler and Color Flow revealed mild aortic reg urgitation. There is no significant aortic valvular stenosis. Calculated aortic valve area is 3.7 cm2 with maximum pressure gradient of 9 mmHg and mean pressure gradient of 5 mmHg. MITRAL VALVE The mitral valve is normal in structure and function. There is no evidence of mitral valve prolapse. There is no mitral valve stenosis. Doppler and Color-flow revealed trace mitral regurgitation. TRICUSPID VALVE The tricuspid valve is normal in structure and function. Doppler and Color Flow revealed trace tricus pid regurgitation with an estimated PAP of 33 mmHg. There is no tricuspid valve stenosis. PULMONIC VALVE The pulmonic valve is not well visualized. Doppler and Color Flow revealed trace pulmonic valvular re gurgitation. GREAT VESSELS The aortic root is mildly enlarged measuring 4 cm. The IVC is normal in size and collapses >50% with inspiration. PERICARDIAL EFFUSION There is no evidence of significant pericardial effusion. Critical Notification Critical Value: No <Conclusion> The left ventricular systolic function is normal. The Ejection Fraction is 55-60%. There is normal LV segmental wall motion. Transmitral Doppler flow pattern is Grade I-abnormal relaxation pattern. Mild aortic regurgitation. Trace mitral regurgitation. Trace tricuspid regurgitation with an estimated PAP of 33 mmHg. There is no evidence of significant pericardial effusion. Signed by : Dewey Horowitz, Electronically Approved : 06/30/2021 18:01:29
--- NOTE | 2021-07-01 11:56 | RAD ---
MR#: [id number] Date of Study: 06/30/2021 Ordering Physician: WALLY BASS, Referring Physician: WALLY BASS, Tech: Jyotsna Fulton Felipe,[facility] APPROVED REPORT Bilateral Lower Extremity Venous Study for Venous Competence, DVT Patient Location: OUT-PATIENT Indications Lower Extremity Edema: Venous Insufficiency Vein Imaging (Right) CFV (R): Compressible SFJ (R): Compressible FEM (R): Compressible POP (R): Compressible DFV (R): Compressible PTV (R): Compressible Peroneals (R): Compressible Vein Imaging (Left) CFV (L): Compressible SFJ (L): Compressible FEM (L): Compressible POP (L): Compressible DFV (L): Compressible PTV (L): Compressible Peroneals (L): Compressible Critical Notification Critical Value: No <Conclusion> FINDINGS Grayscale images of deep veins bilateral lower extremities with grossly normal with fully compressibl e common femoral, superficial femoral, popliteal veins with normal spectral waveforms and color duple x. Below the knee there was spontaneous flow noted in the vessels appear to be fully compressible. There is no evidence of deep venous thrombosis. CONCLUSIONS Lower extremity venous duplex scan did not show any evidence for deep venous thrombosis. Signed by : Dewey Horowitz, Electronically Approved : 07/01/2021 11:56:04
== END ==
LOC: ECHO 12:52
PROVIDERS: ATTEND Internal Medicine Cardiovascular Disease
DX: I35.1 Nonrheumatic aortic (valve) insufficiency (principal); I87.2 Venous insufficiency (chronic) (peripheral); I77.810 Thoracic aortic ectasia; R06.02 Shortness of breath
CPT/HCPCS: 93306; 93970

== ENCOUNTER → 2021-09-09 | Outpatient (CLI) | payer MEDICARE ==
[2019-06-15 12:21] VITALS: BP 122/72
--- NOTE | 2021-09-09 16:01 | RAD ---
EXAM: XR LUMBAR SPINE 2-3V 09/09/2021 10:37 AM CLINICAL INDICATION: Pain left side of back COMPARISON: None TECHNIQUE: AP, lateral, and coned-down lateral views of the lumbar spine FINDINGS: There 5 nonrib-bearing lumbar vertebral bodies. No acute fracture. There is 5 mm anterolis thesis of L4 on L5. Mild disc space narrowing and tiny osteophytes throughout the lumbar spine. Advan saba facet arthrosis at L4-L5 and L5-S1. IMPRESSION: 1. 5 mm anterolisthesis of L4 on L5. 2. Mild multilevel degenerative disc disease. 3. Advanced facet arthrosis at L4-5 and L5-S1. Electronically signed by: Samira Whitmore MD (09/09/2021 3:59 PM) [id number]
== END ==
LOC: RAD 10:26
PROVIDERS: ATTEND Specialist
DX: M47.817 Spondylosis without myelopathy or radiculopathy, lumbosacral region (principal); M51.36 Other intervertebral disc degeneration, lumbar region; M48.061 Spinal stenosis, lumbar region without neurogenic claudication; M25.78 Osteophyte, vertebrae; M43.16 Spondylolisthesis, lumbar region
CPT/HCPCS: 72100